=== PATIENT | male | born 1955 | race Caucasian/White ===

== ENCOUNTER 2018-09-09 17:51 | Inpatient (IN) | payer MEDICAID, SELFPAY ==
[2018-09-09] VITALS (21 sets, daily range): BP systolic 119–141; BP diastolic 75–100; PULSE 89–107; RESP 16–33; TEMP 36.6–37; O2SAT 93–99
--- NOTE | 2018-09-09 18:23 | W.ED.GENAD ---
Discharge Plan Disposition Patient Disposition: [facility] INPATIENT Condition: Stable Discharge Details Chief Complaint: Abd Prob Clinical Impression: Abdominal pain, Hypokalemia Reason For Visit: Abdominal pain with leukocytosis Admit Date/Time: 09/09/18 21:28 Admit Provider: Tommy Ulloa III Attending Provider: Tommy Ulloa III Primary Care Provider: None,None ED Provider: Christiano Venegas [facility] Course Hospital Course: Patient was admitted with unknown etiology for his leukocytosis and abdominal pain. CAT scan showed significant streaking of the omentum and mesentery in the peripancreatic and gastric region with concerns for pancreatitis or a gastric ulcer. Patient was started on empiric IV antibiotics with pain meds and IV hydration. Patient was kept n.p.o. and over the course of 4 days in the hospital all his labs returned to normal. Patient was advanced on his diet to a clear liquid where he occasionally would complain of nausea and vomiting but ultimately he was tolerating his diet and was ready for discharge. Patient had H. pylori test and will be continued on antibiotics for H. pylori for a total of 2 weeks. Plan was to have patient reschedule for a upper endoscopy approximately 2 weeks out after the course of antibiotics had finished. Discharge Instructions Instructions: Helicobacter Pylori (GEN) Forms: Nursing Discharge Form Referrals: Tommy Ulloa III, DO [OSTEOPATHIC DOCTOR] - Discharge Data Discharge Date/Time-TO BE ENTERED AT DEPARTURE: 09/09/18 22:23 Medical Decision Making <Ayden Dickey MD - Last Filed: 09/18/18 18:54> 18:27 --63-year-old male here with severe abdominal pain over the past 4 days localized to his mid abdomen and left lower quadrant, tender to palpation in his left lower abdomen and mid abdomen. Concern for acute intra-abdominal surgical process. Consider diverticulitis. Consider bowel perforation. Consider pancreatitis. Plan to CT abdomen pelvis. Maintain NPO. We will give IV fluid. Patient is in significant discomfort. I will treat his pain with a sub-dissociative dose of ketamine. 19:30 --labs reviewed and leukocytosis noted. Potassium 3.1. Will give potassium chloride 20 mEq IV. Lactate mildly elevated. Will give IVF. ALT and total bili elevated. Gallbladder was noted on CT to have calcified stone within the gallbladder but no pericholecystic inflammation. Nonspecific inflammatory-appearing changes within the omentum, mesentery and peripancreatic fat noted on CT. Lipase normal. 20:11 -- Patient reassessed and still having pain. 20:20 -- I spoke with the radiologist who interpreted the CT, Dr. Larson, who notes no obstruction, no ischemic bowel, no perforation, he does mention adjacent potential jejunal inflammation. I spoke with Dr. Stokes with plan for serial abdominal exams, repeat lactate, pain control, NPO and IVF. Requests surgical evaluation. 20:29 -- I spoke with Dr. Ulloa who will see patient. Care signed out to Dr. Venegas with plan to follow-up on surgical evaluation. Imaging Data Radiologic Study: Imaging: CT Scan (abd pelv) Radiologist's impression: FINDINGS: Lower thorax: Bilateral basilar paraseptal emphysema. Atelectasis and/or scar in the right middle lobe and lingula. Tiny gastric hiatus hernia. ABDOMEN: Liver: Unremarkable. No mass. Gallbladder and bile ducts: Calcified stone within the gallbladder. No pericholecystic inflammation. Pancreas: Hazy density within the fat surrounding the pancreas tail. Extensive hazy density throughout the omentum with mild hazy density and scattered tiny lymph nodes within the small bowel mesentery. The findings are nonspecific and may result from acute pancreatitis or changes related to mesenteritis, possibly infectious. Further clinical evaluation is needed. Spleen: Unremarkable. No splenomegaly. Adrenals: Normal. No mass. Kidneys and ureters: Unremarkable. No stones. No hydronephrosis. Stomach and bowel: No bowel obstruction. No diverticulitis or colitis. Appendix: No evidence of appendicitis. PELVIS: Bladder: Mild wall thickening of the urinary bladder, likely secondary to under distention. Cystitis or hypertrophy from chronic urinary bladder a light obstruction is not excluded. Reproductive: Mildly enlarged prostate measuring 4.5 cm x 5.4 cm. ABDOMEN and PELVIS: Intraperitoneal space: Unremarkable. No free air. No significant fluid collection. Bones/joints: No acute fracture. Soft tissues: Small left inguinal hernia containing fat. Vasculature: Mild atherosclerosis of the abdominal aorta. Lymph nodes: No pathologically enlarged lymph nodes. IMPRESSION: 1. Nonspecific inflammatory appearing changes within the omentum, mesentery and peripancreatic fat. Correlate clinically with other signs and symptoms of acute pancreatitis. Other etiologies of mesenteritis including infection should be considered. Further clinical workup is needed. 2. Other nonemergent findings as described above. HPI <Ayden Dickey, MD - Last Filed: 09/18/18 18:54> General Mode of arrival: ambulatory. Date/Time Provider Initiated Documentation: 09/09/18 18:20. Limitations to Documentation: no limitations. Information obtained by: patient. HPI Narrative: 63-year-old male prisoner here with chief when of abdominal pain. Pain is localized to his mid to lower abdomen and left lower quadrant. Pain started 4 days ago and has been persistent. Pain is severe. Patient specifically notes it feels like something blew up inside. It is worse on palpation. He was being given stool softeners and laxatives to treat possible constipation over the past couple days. He had a bowel movement earlier today that did not relieve his symptoms. He also notes that he had trace bright red blood per rectum yesterday. He denies associated fever. No vomiting. Patient denies trauma to his abdomen or rectum. Related Data Home Medications Medication Instructions Recorded Confirmed hydrochlorothiazide 1 tab PO DAILY 02/07/16 09/09/18 Incruse Ellipta 62.5 mcg INHALATION DAILY 09/09/18 09/09/18 Ventolin HFA 1 inh INHALATION QID PRN 09/09/18 09/09/18 acetaminophen 325 mg PO Q6H PRN 09/09/18 09/09/18 aspirin 81 mg PO DAILY 09/09/18 09/09/18 docusate sodium [Colace] 100 mg PO DAILY 09/09/18 09/09/18 ibuprofen 600 mg PO BID 09/09/18 09/09/18 magnesium hydroxide [Milk of 1 dose PO BID 09/09/18 09/09/18 Magnesia] metoprolol tartrate 1 tab PO BID 09/09/18 09/09/18 psyllium husk [Metamucil] 1 packet PO PRN PRN 09/09/18 09/09/18 sennosides [senna] 8.6 mg PO BID PRN 09/09/18 09/09/18 simethicone 80 mg PO ONCE 09/09/18 09/09/18 clarithromycin 500 mg PO BID #28 tab 09/14/18 metronidazole [Flagyl] 500 mg PO BID #28 tab 09/14/18 omeprazole 40 mg PO BID #28 cap 09/14/18 Previous Rx's Medication Instructions Recorded clarithromycin 500 mg PO BID #28 tab 09/14/18 metronidazole [Flagyl] 500 mg PO BID #28 tab 09/14/18 omeprazole 40 mg PO BID #28 cap 09/14/18 Allergies Allergy/AdvReac Type Severity Reaction Status Date / Time Penicillins Allergy Unverified 09/09/18 18:51 General Stated Complaint: Abd Prob JUHI: 3 Review of Systems <Ayden Dickey MD - Last Filed: 09/18/18 18:54> Review of Systems All systems reviewed & are unremarkable except as noted in HPI and below Cardiovascular Denies chest pain Gastrointestinal Reports abdominal pain and Denies vomiting PFSH <Ayden Dickey MD - Last Filed: 09/18/18 18:54> Medical History Left shift without diagnosis of specific infection (Acute) Leukocytosis (leucocytosis) (Acute) Duodenitis (Acute) Acute pancreatitis (Acute) Abdominal pain (Acute) COPD (chronic obstructive pulmonary disease) (Chronic) Social History Smoking/Tobacco Use Status: Former Tobacco Use Exam <Ayden Dickey MD - Last Filed: 09/18/18 18:54> Const General: cooperative and in distress (in pain) Orientation: alert and awake HENMN Head: normocephalic and atraumatic Mouth: mucous membranes dry Eyes Conjunctivae: normal conjunctivae Sclera: normal sclerae EOM: EOM intact bilaterally Neck Neck: trachea midline and supple Resp Auscultation: clear to auscultation bilaterally, no rales, no rhonchi and no wheezes Cardio Jugular venous pressure: no JVD Rate: regular rate and not tachycardic Rhythm: regular rhythm GI Palpation: soft, not firm, guarding, no masses, not rigid and tender in the LLQ, in the LUQ and periumbilically; with no rebound tenderness Skin General skin exam: no rashes or lesions noted Neuro General: alert, awake, oriented x3 and tone normal Extrem General: no edema Psych Appearance: grossly normal Mental Status: mental status grossly normal Speech and Movement: speech and movement normal Course <Ayden Dickey MD - Last Filed: 09/18/18 18:54> Vital Signs Temperature 37.0 C 09/09/18 18:02 Pulse 94 H 09/09/18 18:02 Respiratory Rate 16 09/09/18 18:02 Blood Pressure 119/81 09/09/18 18:02 Pulse Oximetry 95 09/09/18 18:02 Temperature 37.0 C 09/09/18 18:02 Temperature Source Skin 09/09/18 18:02 Pulse 94 H 09/09/18 18:02 Respiratory Rate 16 09/09/18 18:02 Blood Pressure 119/81 09/09/18 18:02 Blood Pressure Position Sitting 09/09/18 18:02 Pulse Oximetry 95 09/09/18 18:02 Sign Out <Ayden Dickey MD - Last Filed: 09/18/18 18:54> Sign Out Data: Sign Out Comment: Follow-up on surgical evaluation. Plan for likely admission. Last updated by Ayden Dickey MD at 09/09/18 20:32 Post-Handoff Eval: Patient signed out to me pending surgical evaluation. He has been seen by medicine, Dr. Stokes. He has now been seen by surgery, Dr. Ulloa. They have decided the patient will be admitted to the surgical service not medical. He has remained stable in the emergency department. Admit to Med/Surg.
[2018-09-09] MEDS: Ketamine 500 MG/10 ML VIAL 10 MG IVP (18:45)
[2018-09-09 18:51] LABS: Lactate-non-spesis 1.8 mmol/L (0.6-1.4)
[2018-09-09] MEDS: Omnipaque 350 MG/ML 100 ML BTL IV (18:55)
[2018-09-09 18:57] LABS: Abs Immature Grans 0.05 k/cumm (0.0-0.09); Absolute Basophil Count 0.02 k/cumm (0.0-0.2); Absolute Monocyte Count 1.46 k/cumm (0.11-0.7); Basophils % 0.1; Eosinophils % 0.1; HCT 44.7 % (40.0-50.0); HGB 15.5 g/dL (13.5-17.5); Immature Grans % 0.3; Lymphocytes % 6.1; Mean Corp. HGB Concentration 34.7 g/dL (32.0-36.0); Mean Corpuscular Hemoglobin 31.8 pg (27.0-33.0); Mean Corpuscular Volume 91.8 fL (80-95); Mean Platelet Volume 11.8 fL (8.0-11.0); Monocytes % 7.6; Neutrophils % 85.8; Platelet Count 160 x1000/uL (130-400); RBC 4.87 m/cumm (4.50-6.00); White Blood Cell Count 19.16 k/cumm (4.4-10.8)
[2018-09-09 18:58] LABS: Absolute Eosinophil Count 0.02 k/cumm (0.0-0.7); Absolute Lymphocyte Count 1.17 k/cumm (1.2-3.4); Absolute Neutrophil Count 16.44 k/cumm (1.2-6.7)
[2018-09-09] MEDS: Lactated Ringers 1,000 ML 1000 ML IV (19:00)
--- NOTE | 2018-09-09 19:05 | DI.CT_ITS ---
SYMPTOM/DIAGNOSIS: ABD PAIN, TENDERNESS LLQ AND MID ABD ABDOMEN AND PELVIC CT: The study was carried out according to the usual protocol with an intravenous administration of 91 cc's of Omnipaque 350. Note is made of paraseptal bibasilar emphysema. There is also note made of regions of atelectasis or scarring involving the right middle lobe and lingula. There is in addition, a tiny gastric hiatus hernia. The liver is unremarkable. A calcified stone is noted in the gallbladder. There is nothing to suggest pericholecystic inflammation. There is no pericholecystic fluid collection. There is some increased density in the peripancreatic fat at the tail of the pancreas. Note is also made of haziness in the omentum. There are scattered, very small lymph nodes within the small bowel mesentery. The findings are to be sure nonspecific and could result from acute pancreatitis or mesenteritis. Infection could not be totally excluded. Correlation of these findings with the patient's clinical status is suggested. The spleen is unremarkable. The adrenals are normal. The kidneys are unremarkable. There are no stones or evidence of hydronephrosis. There is no evidence of bowel obstruction. There is nothing to suggest an acute appendix. Mild wall thickening involving the bladder is most likely on the basis of suboptimal distension. To be sure, cystitis or bladder wall hypertrophy could not be excluded. The reproductive organs are intact with note made of prostatic enlargement measuring up to 4.5 by 5.4 cm. There is no evidence of free air or free fluid in the intraperitoneal space. Note is made of a small fat containing left inguinal hernia. There are mild atherosclerotic changes involving the aorta without evidence of an aneurysm. There is no evidence of lymphadenopathy. SUMMARY: There are nonspecific inflammatory changes in the omental fat and in the peripancreatic fat. The findings are to be correlated with the patient's clinical status regarding the possibility of acute pancreatitis. Other etiologies are noted as mentioned above and include mesenteritis and possible infection. All of these findings to be correlated with the patient's clinical status. Please see the above report for the complete description of the other findings involving this patient.
[2018-09-09 19:15] LABS: Lipase 194 U/L (73-393)
[2018-09-09 19:19] LABS: ALT 147 U/L (12-78); AST 35 U/L (15-37); Albumin 3.9 g/dL (3.4-5.0); Alkaline Phosphatase 128 U/L (46-116); Anion Gap 9.8 mmol/L (3-11); BUN 21 mg/dL (7-18); Bilirubin, Total 1.7 mg/dL (0.2-1.0); CO2 30.2 mmol/L (21.0-32.0); CREATININE 1.12 mg/dL (0.70-1.30); Calcium 9.5 mg/dL (8.5-10.1); Chloride 95 mmol/L (98-107); Glucose 138 mg/dL (70-100); Potassium 3.1 mmol/L (3.5-5.1); Sodium 135 mmol/L (136-145); Total Protein 8.2 g/dL (6.4-8.2)
--- NOTE | 2018-09-09 19:22 | DI.VRAD_ITS ---
Addendum created by Dean Schwartz MD on 09/09/2018 8:52:51 PM EST I personally discussed the findings with Ayden Dickey on 09/09/2018 at 8:20 PM EST by telephone conference call. Initial report created on 09/09/2018 7:21:43 PM EST EXAM: CT Abdomen and Pelvis With Contrast EXAM DATE/TIME: 09/09/2018 6:23 PM CLINICAL HISTORY: 63 years old, male; Signs and symptoms; Nausea and vomiting and other: Abd pain 4 days, tender llq and mid abd; Prior surgery; Surgery date: 6+ months; Surgery type: Hernia repair TECHNIQUE: Axial computed tomography images of the abdomen and pelvis with intravenous contrast. All CT scans at this facility use at least one of these dose optimization techniques: automated exposure control; mA and/or kV adjustment per patient size (includes targeted exams where dose is matched to clinical indication); or iterative reconstruction. Coronal and sagittal reformatted images were created and reviewed. CONTRAST: 91 ml of omnipaque 350 administered intravenously. COMPARISON: No relevant prior studies available. FINDINGS: Lower thorax: Bilateral basilar paraseptal emphysema. Atelectasis and/or scar in the right middle lobe and lingula. Tiny gastric hiatus hernia. ABDOMEN: Liver: Unremarkable. No mass. Gallbladder and bile ducts: Calcified stone within the gallbladder. No pericholecystic inflammation. Pancreas: Hazy density within the fat surrounding the pancreas tail. Extensive hazy density throughout the omentum with mild hazy density and scattered tiny lymph nodes within the small bowel mesentery. The findings are nonspecific and may result from acute pancreatitis or changes related to mesenteritis, possibly infectious. Further clinical evaluation is needed. Spleen: Unremarkable. No splenomegaly. Adrenals: Normal. No mass. Kidneys and ureters: Unremarkable. No stones. No hydronephrosis. Stomach and bowel: No bowel obstruction. No diverticulitis or colitis. Appendix: No evidence of appendicitis. PELVIS: Bladder: Mild wall thickening of the urinary bladder, likely secondary to under distention. Cystitis or hypertrophy from chronic urinary bladder a light obstruction is not excluded. Reproductive: Mildly enlarged prostate measuring 4.5 cm x 5.4 cm. ABDOMEN and PELVIS: Intraperitoneal space: Unremarkable. No free air. No significant fluid collection. Bones/joints: No acute fracture. Soft tissues: Small left inguinal hernia containing fat. Vasculature: Mild atherosclerosis of the abdominal aorta. Lymph nodes: No pathologically enlarged lymph nodes. IMPRESSION: 1. Nonspecific inflammatory appearing changes within the omentum, mesentery and peripancreatic fat. Correlate clinically with other signs and symptoms of acute pancreatitis. Other etiologies of mesenteritis including infection should be considered. Further clinical workup is needed. 2. Other nonemergent findings as described above. Dictated and Authenticated by: Dean Schwartz MD. Ordering:TERESA Hensley MD
--- NOTE | 2018-09-09 20:26 | W.PM.HP.N ---
Date of service: 09/09/18 Time of Service: 20:27 Assessment and Plan (1) Abdominal pain: Current visit: Yes Status: Acute Abdominal pain, etiology unclear though clearly this would seem to localize to the peripancreatic zone based on the CT. I would not want to make a diagnosis of pancreatitis with a normal lipase. Absent a specific diagnosis with this degree of tenderness and leukocytosis I feel a surgical consult would be appropriate. I reviewed this with the emergency room physician and he is making that contact will standby on management plan pending surgical consult. History of Present Illness Chief Complaint: Abdominal pain Narrative: Patient is a 63-year-old male from the local [place] [facility]. He reports 4 days of more or less constant epigastric pain, with occasional radiation to the back he says he has been moving his bowels normally other than having some loose stool the last few days after he was given unspecified bowel regimen at the [place] [facility]. In the emergency room findings of note for market tenderness of the abdomen, white count of 19,[address] showing inflammatory change in the peripancreatic tissues. He was admitted for further evaluation and management Past medical history: COPD, alcoholism question hypertension, report of unspecified chronic pain syndrome Allergies to penicillin Medication aspirin 81 daily Colace hydrochlorothiazide Lopressor Physical exam temp is 37.0 blood pressure 119/81 pulse 94 respirations 16 O2 sat 95%. HEENT is unremarkable neck supple lungs diminished breath sounds but clear. Heart is distant but regular rate and rhythm. Abdomen is somewhat distended, hypoactive bowel sounds with moderate to severe epigastric tenderness without rebound. Rectal exam is heme negative Laboratory: White count is 19.1 hematocrit 44 platelet 160 sodium 135 potassium 3.1 chloride 95 bicarb 30 BUN 21 creatinine 1.1 glucose 138 lactate 1.8, lipase is 194, calcium 9.5 total bili 0.1 [address] of the abdomen shows inflammatory changes within the omentum, mesentery and peripancreatic fat Review of Systems Review of Systems All systems reviewed & are unremarkable except as noted in HPI and below PFSH Medical History COPD (chronic obstructive pulmonary disease) (Chronic) Social History Smoking/Tobacco Use Status: Former Tobacco Use Meds Home Medications Medication Instructions Recorded Confirmed Type hydrochlorothiazide 1 tab PO DAILY 02/07/16 09/09/18 History acetaminophen 325 mg PO Q6H PRN 09/09/18 09/09/18 History albuterol sulfate [Ventolin HFA] 09/09/18 History aspirin 81 mg PO DAILY 09/09/18 09/09/18 History docusate sodium [Colace] 100 mg PO DAILY 09/09/18 09/09/18 History ibuprofen 09/09/18 History magnesium hydroxide [Milk of 09/09/18 History Magnesia] metoprolol tartrate 1 tab PO DAILY 09/09/18 09/09/18 History psyllium husk [Metamucil] 09/09/18 History sennosides [senna] 8.6 mg PO BID PRN 09/09/18 History simethicone 80 mg PO ONCE 09/09/18 History umeclidinium [Incruse Ellipta] 09/09/18 History Allergies Allergy/AdvReac Type Severity Reaction Status Date / Time Penicillins Allergy Unverified 09/09/18 18:51 Exam Narrative Exam Narrative: per HPI Results Labs : 09/09/18 18:23 09/09/18 18:23 Laboratory Results - last 24 hr 09/09/18 09/09/18 09/09/18 18:23 18:23 18:23 WBC RBC Hgb Hct MCV MCH MCHC RDW Plt Count MPV Immature Gran % Neutrophils % Lymphocytes % Monocytes % Eosinophils % Basophils % Absolute Neutrophils Absolute Lymphocytes Absolute Monocytes Absolute Eosinophils Absolute Basophils Sodium 135 L Potassium 3.1 L Chloride 95 L Carbon Dioxide 30.2 Anion Gap 9.8 BUN 21 H Creatinine 1.12 Estimated GFR/1.73 m2 >= 60.00 Glucose 138 H Lactate 1.8 H Calcium 9.5 Total Bilirubin 1.7 H AST 35 ALT 147 H Alkaline Phosphatase 128 H Total Protein 8.2 Albumin 3.9 Lipase Patient ABO/Rh A Positive 09/09/18 09/09/18 18:23 18:23 WBC 19.16 H RBC 4.87 Hgb 15.5 Hct 44.7 MCV 91.8 MCH 31.8 MCHC 34.7 RDW 13.0 Plt Count 160 MPV 11.8 H Immature Gran % 0.3 Neutrophils % 85.8 Lymphocytes % 6.1 Monocytes % 7.6 Eosinophils % 0.1 Basophils % 0.1 Absolute Neutrophils 16.44 H Absolute Lymphocytes 1.17 L Absolute Monocytes 1.46 H Absolute Eosinophils 0.02 Absolute Basophils 0.02 Sodium Potassium Chloride Carbon Dioxide Anion Gap BUN Creatinine Estimated GFR/1.73 m2 Glucose Lactate Calcium Total Bilirubin AST ALT Alkaline Phosphatase Total Protein Albumin Lipase 194 Patient ABO/Rh Last Vital Signs Temp 37.0 C 09/09/18 18:02 Pulse 94 H 09/09/18 18:02 Resp 16 09/09/18 18:02 BP 119/81 09/09/18 18:02 Pulse Ox 95 09/09/18 18:02
[2018-09-09] MEDS: POTASSIUM CHLORIDE 20 MEQ/100 ML BAG 50 MEQ IVPB (20:31)
[2018-09-09] MEDS: Lactated Ringers 1,000 ML 125 ML IV ×2 (20:31→22:43)
--- NOTE | 2018-09-09 21:10 | W.PM.HP.N ---
Date of service: 09/09/18 Time of Service: 21:10 Assessment and Plan (1) Acute pancreatitis: Start date: 09/09/18 Start time: 21:19 Current visit: Yes Status: Acute pt pain mostly in the epigastric region some radiation to the chest and back unsure why he does not have an elevated amylase or lipase but will treat like this is the diagnosis covering some other differentials listed below (2) Duodenitis: Start date: 09/09/18 Start time: 21:19 Current visit: Yes Status: Acute ct look as if he has thickened duodenum there is no signs of perforation or free air around the duodenum The elevated white count with a left shift indicates an infectious process could be explained by pancreatitis but lack of amylase and lipase makes this a possible differential in his current condition. (3) Leukocytosis (leucocytosis): Start date: 09/09/18 Start time: 21:19 Current visit: Yes Status: Acute We will start broad-spectrum antibiotics Cipro and Flagyl for his current condition. Will repeat labs in a.m. (4) Left shift without diagnosis of specific infection: Start date: 09/09/18 Start time: 21:19 Current visit: Yes Status: Acute Start antibiotics (5) Abdominal pain: Start date: 09/09/18 Start time: 21:19 Current visit: Yes Status: Acute Pain meds as needed History of Present Illness Chief Complaint: abdomial pain for 4 days Narrative: pt claims the pain has stayed at this level all along. Hes been receiving ibuprofen for it around the clock. Review of Systems Constitutional Reports as per HPI Cardiovascular Reports as per HPI Respiratory Reports as per HPI Gastrointestinal Reports as per HPI, Reports abdominal pain and Reports nausea PFSH Medical History Left shift without diagnosis of specific infection (Acute) Leukocytosis (leucocytosis) (Acute) Duodenitis (Acute) Acute pancreatitis (Acute) Abdominal pain (Acute) COPD (chronic obstructive pulmonary disease) (Chronic) Social History Smoking/Tobacco Use Status: Former Tobacco Use Meds Home Medications Medication Instructions Recorded Confirmed Type hydrochlorothiazide 1 tab PO DAILY 02/07/16 09/09/18 History acetaminophen 325 mg PO Q6H PRN 09/09/18 09/09/18 History albuterol sulfate [Ventolin HFA] 09/09/18 History aspirin 81 mg PO DAILY 09/09/18 09/09/18 History docusate sodium [Colace] 100 mg PO DAILY 09/09/18 09/09/18 History ibuprofen 09/09/18 History magnesium hydroxide [Milk of 09/09/18 History Magnesia] metoprolol tartrate 1 tab PO DAILY 09/09/18 09/09/18 History psyllium husk [Metamucil] 09/09/18 History sennosides [senna] 8.6 mg PO BID PRN 09/09/18 History simethicone 80 mg PO ONCE 09/09/18 History umeclidinium [Incruse Ellipta] 09/09/18 History Allergies Allergy/AdvReac Type Severity Reaction Status Date / Time Penicillins Allergy Unverified 09/09/18 18:51 Exam Const General: cooperative Nutritional Appearance: average body habitus Orientation: alert, awake and oriented x3 Resp Effort & Inspection: normal respiratory effort Auscultation: clear to auscultation bilaterally Percussion: percussion normal Cardio Jugular venous pressure: no JVD Palpation: normal PMI Rate: tachycardic Rhythm: regular rhythm Heart Sounds: S1 normal and S2 normal GI Inspection: normal to inspection and distended Palpation: firm, guarding and tender in the epigastrum Percussion: tympanic to percussion Auscultation: hypoactive bowel sounds Abdomen image: 1. pain Results Labs : 09/09/18 18:23 09/09/18 18:23 Laboratory Results - last 24 hr 09/09/18 09/09/18 09/09/18 18:23 18:23 18:23 WBC RBC Hgb Hct MCV MCH MCHC RDW Plt Count MPV Immature Gran % Neutrophils % Lymphocytes % Monocytes % Eosinophils % Basophils % Absolute Neutrophils Absolute Lymphocytes Absolute Monocytes Absolute Eosinophils Absolute Basophils Sodium 135 L Potassium 3.1 L Chloride 95 L Carbon Dioxide 30.2 Anion Gap 9.8 BUN 21 H Creatinine 1.12 Estimated GFR/1.73 m2 >= 60.00 Glucose 138 H Lactate 1.8 H Calcium 9.5 Total Bilirubin 1.7 H AST 35 ALT 147 H Alkaline Phosphatase 128 H Total Protein 8.2 Albumin 3.9 Lipase Patient ABO/Rh A Positive Antibody Screen Negative 09/09/18 09/09/18 18:23 18:23 WBC 19.16 H RBC 4.87 Hgb 15.5 Hct 44.7 MCV 91.8 MCH 31.8 MCHC 34.7 RDW 13.0 Plt Count 160 MPV 11.8 H Immature Gran % 0.3 Neutrophils % 85.8 Lymphocytes % 6.1 Monocytes % 7.6 Eosinophils % 0.1 Basophils % 0.1 Absolute Neutrophils 16.44 H Absolute Lymphocytes 1.17 L Absolute Monocytes 1.46 H Absolute Eosinophils 0.02 Absolute Basophils 0.02 Sodium Potassium Chloride Carbon Dioxide Anion Gap BUN Creatinine Estimated GFR/1.73 m2 Glucose Lactate Calcium Total Bilirubin AST ALT Alkaline Phosphatase Total Protein Albumin Lipase 194 Patient ABO/Rh Antibody Screen Last Vital Signs Temp 37.0 C 09/09/18 18:02 Pulse 94 H 09/09/18 18:02 Resp 16 09/09/18 18:02 BP 119/81 09/09/18 18:02 Pulse Ox 95 09/09/18 18:02
[2018-09-09] MEDS: HYDROmorphone 2 MG/ML VIAL 0.5 MG IVP (21:51)
[2018-09-09] MEDS: HYDROmorphone 2 MG/ML VIAL IVP (23:34)
[2018-09-09] MEDS: MetroNIDAZOLE 500 MG/100 ML BAG 100 MG IVPB (23:35)
[2018-09-09] MEDS: Normal Saline Flush 10 ML SYR IVP (23:35)
[2018-09-10] MEDS: CIPROFLOXACIN 400 MG/200 ML BAG 200 MG IVPB ×2 (01:40→14:18)
[2018-09-10] MEDS: HYDROmorphone 2 MG/ML VIAL IVP ×4 (06:11→23:36)
[2018-09-10] MEDS: Sucralfate 1 GM TAB PO ×4 (07:12→23:36)
[2018-09-10 07:16] LABS: Abs Immature Grans 0.04 k/cumm (0.0-0.09); Absolute Basophil Count 0.02 k/cumm (0.0-0.2); Absolute Eosinophil Count 0.03 k/cumm (0.0-0.7); Absolute Lymphocyte Count 0.96 k/cumm (1.2-3.4); Absolute Monocyte Count 1.34 k/cumm (0.11-0.7); Basophils % 0.1; Eosinophils % 0.2; HCT 37.9 % (40.0-50.0); HGB 12.8 g/dL (13.5-17.5); Immature Grans % 0.2; Lymphocytes % 5.8; Mean Corp. HGB Concentration 33.8 g/dL (32.0-36.0); Mean Corpuscular Hemoglobin 31.8 pg (27.0-33.0); Mean Platelet Volume 11.5 fL (8.0-11.0); Monocytes % 8.1; Neutrophils % 85.6; Platelet Count 145 x1000/uL (130-400); RBC 4.03 m/cumm (4.50-6.00); RBC Distribution Width 12.8 % (11.8-14.1); White Blood Cell Count 16.52 k/cumm (4.4-10.8)
[2018-09-10 07:17] LABS: Absolute Neutrophil Count 14.14 k/cumm (1.2-6.7)
[2018-09-10 07:27] LABS: ALT 95 U/L (12-78); AST 23 U/L (15-37); Alkaline Phosphatase 108 U/L (46-116); Amylase 72 U/L (25-115); Anion Gap 8.7 mmol/L (3-11); BUN 15 mg/dL (7-18); Bilirubin, Total 1.7 mg/dL (0.2-1.0); CO2 28.3 mmol/L (21.0-32.0); CREATININE 0.93 mg/dL (0.70-1.30); Calcium 8.2 mg/dL (8.5-10.1); Chloride 100 mmol/L (98-107); Glucose 111 mg/dL (70-100); Lipase 100 U/L (73-393); Potassium 3.1 mmol/L (3.5-5.1); Sodium 137 mmol/L (136-145); Total Protein 6.6 g/dL (6.4-8.2)
[2018-09-10 07:30] VITALS: BP 107/71; PULSE 106; RESP 20; TEMP 37.1; O2SAT 88
[2018-09-10] MEDS: Normal Saline Flush 10 ML SYR IVP ×5 (07:44→23:41)
[2018-09-10] MEDS: Ketorolac 15 MG/ML VIAL IVP ×3 (07:45→19:52)
[2018-09-10] MEDS: Pantoprazole 40 MG VIAL IVP ×2 (07:45→19:51)
[2018-09-10] MEDS: MetroNIDAZOLE 500 MG/100 ML BAG 100 MG IVPB ×3 (07:45→23:37)
[2018-09-10] MEDS: Lactated Ringers 1,000 ML 125 ML IV ×2 (07:49→23:07)
[2018-09-10] MEDS: POTASSIUM CHLORIDE 10 MEQ/100 ML BAG 100 MEQ IVPB ×4 (09:40→12:38)
[2018-09-10 13:05] VITALS: BP 103/69; PULSE 100; RESP 22; TEMP 37.9; O2SAT 94
--- NOTE | 2018-09-10 14:00 | W.PM.PROGNOT ---
Date of Service Date of service: 09/10/18 Time of Service: 14:01 Assessment and Plan (1) Leukocytosis (leucocytosis): Current visit: Yes Status: Acute A\\ leukocytsosis with CT findings which are non-specific. Differential includes mesenteritis, pancreatitis, duodenitis Loose stools- patient on multiple stool softners in longterm. P\\ Continue with IV ABX Continue with IV Protonix and po Carafate Recheck labs in the am Qualifiers: Leukocytosis type: unspecified Qualified Code(s): D72.829 - Elevated white blood cell count, unspecified (2) Hypertension: Current visit: Yes Status: Chronic A\\ Usually on Metoprolol and HCTZ BP low and tachycardic P\\ Give a bolus of fluid Hold BP meds for now Qualifiers: Hypertension type: essential hypertension Qualified Code(s): I10 - Essential (primary) hypertension (3) COPD (chronic obstructive pulmonary disease): Current visit: Yes Status: Chronic A\\ COPD P\\ restart usual inhalors and also do Duonebs Q6h prn Get ISP Qualifiers: COPD type: unspecified COPD Qualified Code(s): J44.9 - Chronic obstructive pulmonary disease, unspecified Subjective Interval history since last seen: Mr. Langston is complaining of intermittent sharp pain in the epigastric, periumbilical area. He is still tachycardic and has been complaining of SOB. He does have a history of COPD. He is hungry and is asking for food. Exam Resp Effort & Inspection: normal respiratory effort Auscultation: clear to auscultation bilaterally Cardio Rate: regular rate Rhythm: regular rhythm Heart Sounds: no gallops, no murmurs and no rubs GI Inspection: normal to inspection Palpation: soft, not firm, no guarding and tender in the epigastrum and periumbilically Auscultation: normal bowel sounds Objective Objective Clinical Data: Abnormal lab results 09/09/18 09/09/18 09/09/18 Range/Units 18:23 18:23 18:23 WBC 19.16 H (4.4-10.8) k/cumm RBC (4.50-6.00) m/cumm Hgb (13.5-17.5) g/dL Hct (40.0-50.0) % MPV 11.8 H (8.0-11.0) fL Absolute Neutrophils 16.44 H (1.2-6.7) k/cumm Absolute Lymphocytes 1.17 L (1.2-3.4) k/cumm Absolute Monocytes 1.46 H (0.11-0.7) k/cumm Sodium 135 L (136-145) mmol/L Potassium 3.1 L (3.5-5.1) mmol/L Chloride 95 L (98-107) mmol/L BUN 21 H (7-18) mg/dL Glucose 138 H (70-100) mg/dL Lactate 1.8 H (0.6-1.4) mmol/L Calcium (8.5-10.1) mg/dL Total Bilirubin 1.7 H (0.2-1.0) mg/dL ALT 147 H (12-78) U/L Alkaline Phosphatase 128 H (46-116) U/L Albumin (3.4-5.0) g/dL 09/10/18 09/10/18 Range/Units 06:58 06:58 WBC 16.52 H (4.4-10.8) k/cumm RBC 4.03 L (4.50-6.00) m/cumm Hgb 12.8 L D (13.5-17.5) g/dL Hct 37.9 L (40.0-50.0) % MPV 11.5 H (8.0-11.0) fL Absolute Neutrophils 14.14 H (1.2-6.7) k/cumm Absolute Lymphocytes 0.96 L (1.2-3.4) k/cumm Absolute Monocytes 1.34 H (0.11-0.7) k/cumm Sodium (136-145) mmol/L Potassium 3.1 L (3.5-5.1) mmol/L Chloride (98-107) mmol/L BUN (7-18) mg/dL Glucose 111 H (70-100) mg/dL Lactate (0.6-1.4) mmol/L Calcium 8.2 L (8.5-10.1) mg/dL Total Bilirubin 1.7 H (0.2-1.0) mg/dL ALT 95 H (12-78) U/L Alkaline Phosphatase (46-116) U/L Albumin 3.0 L (3.4-5.0) g/dL Vital Signs Temperature 100.2 F H 09/10/18 13:05 Temperature Source Tympanic 09/10/18 13:05 Pulse 100 H 09/10/18 13:05 Pulse Rhythm Regular 09/10/18 07:45 Pulse 105 H 09/09/18 22:10 Respiratory Rate 22 09/10/18 13:05 Respiratory Effort Non-Labored 09/10/18 07:45 Respiratory Depth Normal 09/10/18 07:45 Respiratory Pattern Normal 09/10/18 07:45 Blood Pressure 103/69 09/10/18 13:05 Blood Pressure Mean 100 09/09/18 22:01 Blood Pressure Position Sitting 09/09/18 18:02 Pulse Oximetry 94 L 09/10/18 13:05 Oxygen Delivery Method Room Air 09/10/18 13:05 Oxygen Flow Rate 0 09/10/18 13:05 Pain Level 8 09/10/18 13:05 Intake & Output 09/09/18 09/10/18 09/10/18 23:59 11:59 23:59 Intake Total 1375 / 1375 150 2000. Balance 1375 / 1375 1850. 150 Weight 166 lb 3.657 oz Intake: IV 1375 / 1375 185.1950. Oral 50 / 50 Laboratory Results WBC 16.52 k/cumm (4.4-10.8) H 09/10/18 06:58 RBC 4.03 m/cumm (4.50-6.00) L 09/10/18 06:58 Hgb 12.8 g/dL (13.5-17.5) L D 09/10/18 06:58 Hct 37.9 % (40.0-50.0) L 09/10/18 06:58 MCV 94.0 fL (80-95) 09/10/18 06:58 MCH 31.8 pg (27.0-33.0) 09/10/18 06:58 MCHC 33.8 g/dL (32.0-36.0) 09/10/18 06:58 RDW 12.8 % (11.8-14.1) 09/10/18 06:58 Plt Count 145 x1000/uL (130-400) 09/10/18 06:58 MPV 11.5 fL (8.0-11.0) H 09/10/18 06:58 Immature Gran % 0.2 09/10/18 06:58 Neutrophils % 85.6 09/10/18 06:58 Lymphocytes % 5.8 09/10/18 06:58 Monocytes % 8.1 09/10/18 06:58 Eosinophils % 0.2 09/10/18 06:58 Basophils % 0.1 09/10/18 06:58 Absolute Neutrophils 14.14 k/cumm (1.2-6.7) H 09/10/18 06:58 Absolute Lymphocytes 0.96 k/cumm (1.2-3.4) L 09/10/18 06:58 Absolute Monocytes 1.34 k/cumm (0.11-0.7) H 09/10/18 06:58 Absolute Eosinophils 0.03 k/cumm (0.0-0.7) 09/10/18 06:58 Absolute Basophils 0.02 k/cumm (0.0-0.2) 09/10/18 06:58 Sodium 137 mmol/L (136-145) 09/10/18 06:58 Potassium 3.1 mmol/L (3.5-5.1) L 09/10/18 06:58 Chloride 100 mmol/L (98-107) 09/10/18 06:58 Carbon Dioxide 28.3 mmol/L (21.0-32.0) 09/10/18 06:58 Anion Gap 8.7 mmol/L (3-11) 09/10/18 06:58 BUN 15 mg/dL (7-18) D 09/10/18 06:58 Creatinine 0.93 mg/dL (0.70-1.30) 09/10/18 06:58 Estimated GFR/1.73 m2 >= 60.00 (mL/min/1.73m2) 09/10/18 06:58 Glucose 111 mg/dL (70-100) H 09/10/18 06:58 Lactate 1.8 mmol/L (0.6-1.4) H 09/09/18 18:23 Calcium 8.2 mg/dL (8.5-10.1) L 09/10/18 06:58 Total Bilirubin 1.7 mg/dL (0.2-1.0) H 09/10/18 06:58 AST 23 U/L (15-37) 09/10/18 06:58 ALT 95 U/L (12-78) H 09/10/18 06:58 Alkaline Phosphatase 108 U/L (46-116) 09/10/18 06:58 Total Protein 6.6 g/dL (6.4-8.2) 09/10/18 06:58 Albumin 3.0 g/dL (3.4-5.0) L 09/10/18 06:58 Amylase 72 U/L (25-115) 09/10/18 06:58 Lipase 100 U/L (73-393) 09/10/18 06:58 Patient ABO/Rh A Positive 09/09/18 18:23 Antibody Screen Negative 09/09/18 18:23
[2018-09-10] MEDS: Albuterol/Ipratropium 3 ML UPD VIAL UPD (14:16)
[2018-09-10 14:18] VITALS: TEMP 37.9
[2018-09-10] MEDS: Normal Saline 500 ML 1000 ML IV (14:50)
--- NOTE | 2018-09-10 15:22 | PHARADMIT ---
Addendum entered by Stefan Mena III 09/12/18 11:40: Pharmacy Note Subjective Surgeon Notes that patient has much improved on empiric ABX & hydration. MD suspicious of duodenal ulcer, well need upper endoscopy. ?Outpatient Objective VS-OK Pain:810 K+3.6 H&H-10.9/33.1 Assessment Flagyl, Cipro continues. Plan Advance diet slowly. Original Note: Addendum entered by Stefan Mena III 09/11/18 12:35: Pharmacy Note Subjective CT reveals non-specific infammation of mesentary, No cholecystitis but stone found. Has hx of COPD, Duonebs ordered Objective vs-ok k+3.4 SCr-1.05 PLts-137 LFT's have normalized. No BM yet Assessment IV Cipro & Flagyl continue. IV Protonix & PO Carafate started. BP low, Home meds held (Metorolol,HCTZ) Plan Will return to [facility], has guard present. Original Note: Admission Pharmacy Clinical Review PANCREATITIS Code Status Full Code Current Weight 75.4 kg Renally Cleared and Narrow Therapeutic Index Meds CRCL ~68ML/MIN QTc Value / Action Taken NA BP Control, Fever 103/69 TEMP 37.9 Electrolytes reviewed K 3.1, DVT Prophylaxis NO Opiate Usage / Scheduled Bowel Regimen Ordered PRN/NO Plt/SCr for Heparin / Enoxaparin 145/0.93 INR for Warfarin NA H/H stable, WBC/Bands 12.8/37.9 WBC 16.52 Antibiotic appropriateness METRONIDAZOLE, CIPRO iv Cultures and Sensitivities BC PENDING Surgical ABX d/c within 24 hr NA DM control / Insulin Dosing NA Heart Failure (Check EF%) (BRYAN's, B-Block, Diuretics) NO IV to PO Switch NO PO MEDS EXCEPT SUCRALFATE Home Meds Reviewed hydrochlorothiazide 1 tab PO DAILY 02/07/16 [History Confirmed 09/09/18] aspirin 81 mg PO DAILY 09/09/18 [History Confirmed 09/09/18] docusate sodium [Colace] 100 mg PO DAILY 09/09/18 ibuprofen 600 mg PO BID 09/09/18 [History Confirmed 09/09/18] magnesium hydroxide [Milk of Magnesia] 1 dose PO BID 09/09/18 metoprolol tartrate 1 tab PO BID 09/09/18 [History Confirmed 09/09/18] psyllium husk [Metamucil] 1 packet PO PRN PRN 09/09/18 sennosides [senna] 8.6 mg PO BID PRN 09/09/18 [History Confirmed 09/09/18] Home Meds Not Ordered Comments
--- NOTE | 2018-09-10 15:51 | CHAPLAIN ---
Kai was in bed, supervised by corrections officers when I visited. He was mostly concerned about his pain level and said his nurse was aware of his pain.
[2018-09-10 16:21] VITALS: BP 96/59; PULSE 101; RESP 22; TEMP 37.4; O2SAT 89
--- NOTE | 2018-09-10 17:42 | PDOC.CMIN ---
- If Service Date Differs Date of service: 09/10/18 Time of Service: 17:42 Care Management Initial Assess REASON FOR HOSPITALIZATION:: Pancreatitis PAST MEDICAL HISTORY/PAST SURGICAL HISTORY:: COPD, hypertension, duodenitis. PREVIOUS FUNCTIONAL STATUS/SOCIAL/FAMILY SUPPORTS:: Kai resides at [facility] and has for the past 4 years. CURRENT FUNCTIONAL STATUS:: Kai is sitting up in bed he is engaged with CM during assessment. Guards are present at all times in the room, and Kai remains shackled. Kai reports that he would like to eat, it is been 4 days due to pain and nausea. He asked several times during the conversation when he will be able to eat. CM reviewed the plan and n.p.o. status with the patient. ADVANCE DIRECTIVES:: None on file Has patient been provided with information about the portal?: Yes Did the patient sign up for the portal?: No CODE STATUS:: Full Code INSURANCE COVERAGE / FINANCIAL ISSUES:: [facility], Medicaid CURRENT HOME/COMMUNITY SERVICES/EQUIPMENT:: Currently resides at the [facility] PRIMARY CARE PHYSICIAN:: [facility] POTENTIAL DISCHARGE NEEDS:: Follow-up with provider at facility as recommended. PATIENT/FAMILY EDUCATION NEEDS:: Education related to limitations, medications, and follow-up plan of care. ANTICIPATED BARRIERS TO DISCHARGE:: None identified at this time. TRANSPORTATION:: Via correctional officers at time of discharge. PLAN:: Kai is currently being treated for pancreatitis, including pain management, and IV antibiotics..Kai will return to [facility] at time of discharge no additional services at that time. CM to provide update to nursing staff at [facility]. CM did obtain a current medication list from [facility] today and provided to see CCRN. CM to continue to provide support ongoing discharge planning.
--- NOTE | 2018-09-10 17:51 | INITIAL_ITS ---
- If Service Date Differs Date of service: 09/10/18 Time of Service: 17:42 Care Management Initial Assess REASON FOR HOSPITALIZATION:: Pancreatitis PAST MEDICAL HISTORY/PAST SURGICAL HISTORY:: COPD, hypertension, duodenitis. PREVIOUS FUNCTIONAL STATUS/SOCIAL/FAMILY SUPPORTS:: Kai resides at [facility] and has for the past 4 years. CURRENT FUNCTIONAL STATUS:: Kai is sitting up in bed he is engaged with CM during assessment. Guards are present at all times in the room, and Kai remains shackled. Kai reports that he would like to eat, it is been 4 days due to pain and nausea. He asked several times during the conversation when he will be able to eat. CM reviewed the plan and n.p.o. status with the patient. ADVANCE DIRECTIVES:: None on file Has patient been provided with information about the portal?: Yes Did the patient sign up for the portal?: No CODE STATUS:: Full Code INSURANCE COVERAGE / FINANCIAL ISSUES:: [facility], Medicaid CURRENT HOME/COMMUNITY SERVICES/EQUIPMENT:: Currently resides at the [facility] PRIMARY CARE PHYSICIAN:: [facility] POTENTIAL DISCHARGE NEEDS:: Follow-up with provider at facility as recommended. PATIENT/FAMILY EDUCATION NEEDS:: Education related to limitations, medications, and follow-up plan of care. ANTICIPATED BARRIERS TO DISCHARGE:: None identified at this time. TRANSPORTATION:: Via correctional officers at time of discharge. PLAN:: Kai is currently being treated for pancreatitis, including pain management, and IV antibiotics..Kai will return to [facility] at time of discharge no additional services at that time. CM to provide update to nursing staff at [facility]. CM did obtain a current medication list from [facility] today and provided to see CCRN. CM to continue to provide support ongoing discharge planning.
--- NOTE | 2018-09-11 00:39 | NUR.NOTE ---
Nursing Note: Pt reported to [facility] LIBRARY CLERK that his urine has blood streaks. Instructed to void in urinal next time and call staff for further assessment. O2 administred at 2L, via NC latest O2 Sat 90%. Stool specimen sent to lab. Medicated for pain and with good relief.
[2018-09-11] MEDS: Ketorolac 15 MG/ML VIAL IVP ×4 (01:32→20:15)
[2018-09-11] MEDS: Normal Saline Flush 10 ML SYR IVP ×4 (01:33→20:14)
[2018-09-11] MEDS: CIPROFLOXACIN 400 MG/200 ML BAG 200 MG IVPB ×2 (01:33→13:04)
[2018-09-11] MEDS: Sucralfate 1 GM TAB PO ×4 (05:34→23:47)
[2018-09-11 07:15] LABS: Abs Immature Grans 0.02 k/cumm (0.0-0.09); Absolute Basophil Count 0.02 k/cumm (0.0-0.2); Absolute Eosinophil Count 0.23 k/cumm (0.0-0.7); Absolute Lymphocyte Count 0.71 k/cumm (1.2-3.4); Basophils % 0.2; HCT 33.9 % (40.0-50.0); HGB 11.1 g/dL (13.5-17.5); Immature Grans % 0.2; Lymphocytes % 6.1; Mean Corp. HGB Concentration 32.7 g/dL (32.0-36.0); Mean Corpuscular Hemoglobin 31.4 pg (27.0-33.0); Monocytes % 9.4; Neutrophils % 82.1; Platelet Count 137 x1000/uL (130-400); RBC 3.53 m/cumm (4.50-6.00); RBC Distribution Width 12.9 % (11.8-14.1); White Blood Cell Count 11.68 k/cumm (4.4-10.8)
[2018-09-11 07:18] LABS: Absolute Neutrophil Count 9.59 k/cumm (1.2-6.7)
[2018-09-11 07:25] VITALS: BP 109/69; PULSE 102; RESP 20; TEMP 38; O2SAT 88
[2018-09-11 07:31] LABS: ALT 63 U/L (12-78); AST 17 U/L (15-37); Albumin 2.6 g/dL (3.4-5.0); Alkaline Phosphatase 101 U/L (46-116); Anion Gap 9.8 mmol/L (3-11); BUN 21 mg/dL (7-18); Bilirubin, Total 1.3 mg/dL (0.2-1.0); CO2 26.2 mmol/L (21.0-32.0); CREATININE 1.05 mg/dL (0.70-1.30); Chloride 101 mmol/L (98-107); Glucose 95 mg/dL (70-100); Potassium 3.4 mmol/L (3.5-5.1); Sodium 137 mmol/L (136-145)
[2018-09-11] MEDS: Umeclidinium 7 CAP INHALER 1 CAP IH (07:39)
[2018-09-11] MEDS: Albuterol/Ipratropium 3 ML UPD VIAL UPD (07:44)
[2018-09-11] MEDS: MetroNIDAZOLE 500 MG/100 ML BAG 100 MG IVPB ×3 (08:47→23:46)
[2018-09-11] MEDS: Pantoprazole 40 MG VIAL IVP ×2 (08:47→20:14)
[2018-09-11] MEDS: Lactated Ringers 1,000 ML 125 ML IV ×2 (08:48→18:28)
--- NOTE | 2018-09-11 10:50 | PDOC.CMPRO ---
- If Service Date Differs Date of service: 09/11/18 Time of Service: 10:50 Care Management Progress Note S/O: Kai is lying in bed when this typewriter assembler visits this morning, there is a guard in the room with him. Kai is pleasant and open to discussion, he continues to be NPO this morning and has an oxygen requirement. A: 63 yo male admitted 09/09/18 for Pancreatitis P: Kai will return to [facility] at time of discharge no additional services at that time. [facility] will transport at time of DC.
[2018-09-11] MEDS: HYDROmorphone 2 MG/ML VIAL IVP (11:33)
--- NOTE | 2018-09-11 11:43 | CMPROGNOTE_ITS ---
- If Service Date Differs Date of service: 09/11/18 Time of Service: 10:50 Care Management Progress Note S/O: Kai is lying in bed when this sql report writer visits this morning, there is a guard in the room with him. Kai is pleasant and open to discussion, he continues to be NPO this morning and has an oxygen requirement. A: 63 yo male admitted 09/09/18 for Pancreatitis P: Kai will return to [facility] at time of discharge no additional services at that time. The Correctional facility will transport at time of DC.
--- NOTE | 2018-09-11 16:18 | W.PM.PROGNOT ---
Date of Service Date of service: 09/11/18 Time of Service: 16:18 Assessment and Plan (1) Abdominal pain: Start date: 09/11/18 Start time: 16:20 Current visit: Yes Status: Acute pt condition improving on antibiotics concern for gastric or duodenal ulcer will need scope in the future will decrease ivf poss po in am and restart home meds tach improved and bp waiting on UA pt does have some element of malnutrition alb 2.6 Subjective Patient reports: no new complaints, feels better and pain is less Exam Const General: cooperative Orientation: alert, awake and oriented x3 Limitations: altered mental status GI Inspection: normal to inspection Palpation: soft and tender (inproved) Percussion: normal to percussion Auscultation: normal bowel sounds Objective Objective Clinical Data: Abnormal lab results 09/11/18 09/11/18 Range/Units 06:20 06:20 WBC 11.68 H (4.4-10.8) k/cumm RBC 3.53 L (4.50-6.00) m/cumm Hgb 11.1 L (13.5-17.5) g/dL Hct 33.9 L (40.0-50.0) % MCV 96.0 H (80-95) fL MPV 12.0 H (8.0-11.0) fL Absolute Neutrophils 9.59 H (1.2-6.7) k/cumm Absolute Lymphocytes 0.71 L (1.2-3.4) k/cumm Absolute Monocytes 1.10 H (0.11-0.7) k/cumm Potassium 3.4 L (3.5-5.1) mmol/L BUN 21 H D (7-18) mg/dL Calcium 8.0 L (8.5-10.1) mg/dL Total Bilirubin 1.3 H (0.2-1.0) mg/dL Total Protein 6.0 L (6.4-8.2) g/dL Albumin 2.6 L (3.4-5.0) g/dL Vital Signs Temperature 38.0 C H 09/11/18 07:25 Temperature Source Tympanic 09/11/18 07:25 Pulse 102 H 09/11/18 07:25 Pulse Rhythm Regular 09/11/18 12:10 Pulse 105 H 09/09/18 22:10 Respiratory Rate 20 09/11/18 07:25 Respiratory Effort Non-Labored 09/11/18 12:10 Respiratory Depth Normal 09/11/18 12:10 Respiratory Pattern Normal 09/11/18 12:10 Blood Pressure 109/69 09/11/18 07:25 Blood Pressure Mean 100 09/09/18 22:01 Blood Pressure Position Sitting 09/09/18 18:02 Pulse Oximetry 88 L 09/11/18 07:25 Oxygen Delivery Method Room Air 09/11/18 07:25 Oxygen Flow Rate 0 09/11/18 07:25 Pain Level 9 09/11/18 11:33 Intake & Output 09/10/18 09/11/18 09/11/18 23:59 11:59 23:59 Intake Total 1858.75 / 3710.00 1100 / 1610 510 / 1610 Output Total 200 / 200 Balance 1858.75 / 3710.00 900 / 1410 510 / 1410 Intake: IV 1808.75 / 3660.00 1100 / 1610 510 / 1610 Oral 50 / 50 Output: Urine 200 / 200 Other: Urine Color Dark Red Voiding Methods Toilet Urinal Laboratory Results WBC 11.68 k/cumm (4.4-10.8) H 09/11/18 06:20 RBC 3.53 m/cumm (4.50-6.00) L 09/11/18 06:20 Hgb 11.1 g/dL (13.5-17.5) L 09/11/18 06:20 Hct 33.9 % (40.0-50.0) L 09/11/18 06:20 MCV 96.0 fL (80-95) H 09/11/18 06:20 MCH 31.4 pg (27.0-33.0) 09/11/18 06:20 MCHC 32.7 g/dL (32.0-36.0) 09/11/18 06:20 RDW 12.9 % (11.8-14.1) 09/11/18 06:20 Plt Count 137 x1000/uL (130-400) 09/11/18 06:20 MPV 12.0 fL (8.0-11.0) H 09/11/18 06:20 Immature Gran % 0.2 09/11/18 06:20 Neutrophils % 82.1 09/11/18 06:20 Lymphocytes % 6.1 09/11/18 06:20 Monocytes % 9.4 09/11/18 06:20 Eosinophils % 2.0 09/11/18 06:20 Basophils % 0.2 09/11/18 06:20 Absolute Neutrophils 9.59 k/cumm (1.2-6.7) H 09/11/18 06:20 Absolute Lymphocytes 0.71 k/cumm (1.2-3.4) L 09/11/18 06:20 Absolute Monocytes 1.10 k/cumm (0.11-0.7) H 09/11/18 06:20 Absolute Eosinophils 0.23 k/cumm (0.0-0.7) 09/11/18 06:20 Absolute Basophils 0.02 k/cumm (0.0-0.2) 09/11/18 06:20 Sodium 137 mmol/L (136-145) 09/11/18 06:20 Potassium 3.4 mmol/L (3.5-5.1) L 09/11/18 06:20 Chloride 101 mmol/L (98-107) 09/11/18 06:20 Carbon Dioxide 26.2 mmol/L (21.0-32.0) 09/11/18 06:20 Anion Gap 9.8 mmol/L (3-11) 09/11/18 06:20 BUN 21 mg/dL (7-18) H D 09/11/18 06:20 Creatinine 1.05 mg/dL (0.70-1.30) 09/11/18 06:20 Estimated GFR/1.73 m2 >= 60.00 (mL/min/1.73m2) 09/11/18 06:20 Glucose 95 mg/dL (70-100) 09/11/18 06:20 Lactate 1.8 mmol/L (0.6-1.4) H 09/09/18 18:23 Calcium 8.0 mg/dL (8.5-10.1) L 09/11/18 06:20 Total Bilirubin 1.3 mg/dL (0.2-1.0) H 09/11/18 06:20 AST 17 U/L (15-37) 09/11/18 06:20 ALT 63 U/L (12-78) 09/11/18 06:20 Alkaline Phosphatase 101 U/L (46-116) 09/11/18 06:20 Total Protein 6.0 g/dL (6.4-8.2) L 09/11/18 06:20 Albumin 2.6 g/dL (3.4-5.0) L 09/11/18 06:20 Amylase 72 U/L (25-115) 09/10/18 06:58 Lipase 100 U/L (73-393) 09/10/18 06:58 C.difficile Tox Ab Neut Cancelled 09/10/18 13:58 Patient ABO/Rh A Positive 09/09/18 18:23 Antibody Screen Negative 09/09/18 18:23
[2018-09-11 16:59] LABS: Bilirubin Moderate (Negative); Blood Negative (Negative); Clarity Sl Cloudy; Glucose Negative (Negative); Ketones 40 mg/dL (Negative); Leukocyte Esterase Negative (Negative); Nitrite Positive (Negative); Specific Gravity >= 1.030 (1.005-1.025); Urobilinogen 0.2 EU/dL (Up TO 0.2)
[2018-09-11 18:28] LABS: Epithelial Cells Few HPF (Negative); RBC Negative (0-2)
[2018-09-11 18:29] LABS: Bacteria Moderate HPF (Negative); Crystals Few Amorphous HPF (Negative); Mucus Moderate (Negative)
[2018-09-11 18:30] LABS: C & S Indicated? Yes; Casts 0-2 Coarse Granular LPF (Negative)
[2018-09-11 18:41] VITALS: BP 120/72; PULSE 88; RESP 20; TEMP 37.1; O2SAT 96
[2018-09-11 19:27] LABS: Result Negative; Specimen Description Feces
[2018-09-11 21:25] VITALS: O2SAT 91
[2018-09-11 21:27] VITALS: O2SAT 95
[2018-09-11] MEDS: ACETAMINOPHEN 1,000 MG/100 ML BTL 400 MG IVPB (21:56)
[2018-09-11 23:20] VITALS: BP 114/73; PULSE 89; RESP 18; TEMP 36.8; O2SAT 94
[2018-09-12] MEDS: Ketorolac 15 MG/ML VIAL IVP ×4 (02:02→20:22)
[2018-09-12] MEDS: CIPROFLOXACIN 400 MG/200 ML BAG 200 MG IVPB ×2 (02:02→13:31)
[2018-09-12] MEDS: Lactated Ringers 1,000 ML 125 ML IV (04:24)
[2018-09-12] MEDS: Sucralfate 1 GM TAB PO ×3 (06:25→18:54)
--- NOTE | 2018-09-12 06:28 | W.PM.PROGNOT ---
Date of Service Date of service: 09/12/18 Time of Service: 06:28 Assessment and Plan (1) Abdominal pain: Start date: 09/12/18 Start time: 06:29 Current visit: Yes Status: Acute Patient has improved with empiric antibiotics and n.p.o. with IV hydration With his clinical exam CT and labs suspicion for duodenal ulcer as cause of his current condition is suspected. Patient will need upper endoscopy at some point in the near future but will do a trial of p.o. to see if he tolerates this the patient may have a large ulcer that had a small perforation causing the omental and mesenteric inflammatory changes as well as a white count. Due to this possibility we will proceed slowly with advancing his diet and at 2 weeks out perform an upper endoscopy to confirm this. Patient will continue on the PPIs and will restart home meds. Subjective Patient reports: no new complaints, feels better and pain is less Exam Const General: cooperative Nutritional Appearance: average body habitus Orientation: alert, awake and oriented x3 Objective Objective Clinical Data: Abnormal lab results 09/11/18 09/11/18 09/11/18 Range/Units 06:20 06:20 08:59 WBC 11.68 H (4.4-10.8) k/cumm RBC 3.53 L (4.50-6.00) m/cumm Hgb 11.1 L (13.5-17.5) g/dL Hct 33.9 L (40.0-50.0) % MCV 96.0 H (80-95) fL MPV 12.0 H (8.0-11.0) fL Absolute Neutrophils 9.59 H (1.2-6.7) k/cumm Absolute Lymphocytes 0.71 L (1.2-3.4) k/cumm Absolute Monocytes 1.10 H (0.11-0.7) k/cumm Potassium 3.4 L (3.5-5.1) mmol/L BUN 21 H D (7-18) mg/dL Calcium 8.0 L (8.5-10.1) mg/dL Total Bilirubin 1.3 H (0.2-1.0) mg/dL Total Protein 6.0 L (6.4-8.2) g/dL Albumin 2.6 L (3.4-5.0) g/dL Ur Specific [place] >= 1.030 H (1.005-1.025) Urine Protein 100 H (Negative) mg/dL Urine Ketones 40 H (Negative) mg/dL Urine Nitrite Positive H (Negative) Urine Bilirubin Moderate H (Negative) Vital Signs Temperature 36.8 C 09/11/18 23:20 Temperature Source Tympanic 09/11/18 23:20 Pulse 89 09/11/18 23:20 Pulse Rhythm Regular 09/12/18 02:37 Pulse 105 H 09/09/18 22:10 Respiratory Rate 18 09/11/18 23:20 Respiratory Effort Non-Labored 09/12/18 02:37 Respiratory Depth Normal 09/12/18 02:37 Respiratory Pattern Normal 09/12/18 02:37 Blood Pressure 114/73 09/11/18 23:20 Blood Pressure Mean 100 09/09/18 22:01 Blood Pressure Position Sitting 09/09/18 18:02 Pulse Oximetry 94 L 09/11/18 23:20 Oxygen Delivery Method Nasal Cannula 09/11/18 23:20 Oxygen Flow Rate 2 09/11/18 23:20 Pain Level 9 09/11/18 21:56 Intake & Output 09/11/18 09/11/18 09/12/18 11:59 23:59 11:59 Intake Total 1100 / 3363.334 2263.334 / 3363.334 866.666 / 866.666 Output Total 200 / 400 200 / 400 Balance 900 / 2963.334 2063.334 / 2963.334 866.666 / 866.666 Intake: IV 1100 / 3243.334 2143.334 / 3243.334 866.666 / 866.666 Oral 120 / 120 Output: Urine 200 / 400 200 / 400 Other: Urine Color Dark Red Dark Marah Comment Urine not seen at this time. Patient flushed toilet Stool Size Small Stool Characteristics Soft Brown Voiding Methods Urinal Urinal Toilet Laboratory Results WBC 11.68 k/cumm (4.4-10.8) H 09/11/18 06:20 RBC 3.53 m/cumm (4.50-6.00) L 09/11/18 06:20 Hgb 11.1 g/dL (13.5-17.5) L 09/11/18 06:20 Hct 33.9 % (40.0-50.0) L 09/11/18 06:20 MCV 96.0 fL (80-95) H 09/11/18 06:20 MCH 31.4 pg (27.0-33.0) 09/11/18 06:20 MCHC 32.7 g/dL (32.0-36.0) 09/11/18 06:20 RDW 12.9 % (11.8-14.1) 09/11/18 06:20 Plt Count 137 x1000/uL (130-400) 09/11/18 06:20 MPV 12.0 fL (8.0-11.0) H 09/11/18 06:20 Immature Gran % 0.2 09/11/18 06:20 Neutrophils % 82.1 09/11/18 06:20 Lymphocytes % 6.1 09/11/18 06:20 Monocytes % 9.4 09/11/18 06:20 Eosinophils % 2.0 09/11/18 06:20 Basophils % 0.2 09/11/18 06:20 Absolute Neutrophils 9.59 k/cumm (1.2-6.7) H 09/11/18 06:20 Absolute Lymphocytes 0.71 k/cumm (1.2-3.4) L 09/11/18 06:20 Absolute Monocytes 1.10 k/cumm (0.11-0.7) H 09/11/18 06:20 Absolute Eosinophils 0.23 k/cumm (0.0-0.7) 09/11/18 06:20 Absolute Basophils 0.02 k/cumm (0.0-0.2) 09/11/18 06:20 Sodium 137 mmol/L (136-145) 09/11/18 06:20 Potassium 3.4 mmol/L (3.5-5.1) L 09/11/18 06:20 Chloride 101 mmol/L (98-107) 09/11/18 06:20 Carbon Dioxide 26.2 mmol/L (21.0-32.0) 09/11/18 06:20 Anion Gap 9.8 mmol/L (3-11) 09/11/18 06:20 BUN 21 mg/dL (7-18) H D 09/11/18 06:20 Creatinine 1.05 mg/dL (0.70-1.30) 09/11/18 06:20 Estimated GFR/1.73 m2 >= 60.00 (mL/min/1.73m2) 09/11/18 06:20 Glucose 95 mg/dL (70-100) 09/11/18 06:20 Lactate 1.8 mmol/L (0.6-1.4) H 09/09/18 18:23 Calcium 8.0 mg/dL (8.5-10.1) L 09/11/18 06:20 Total Bilirubin 1.3 mg/dL (0.2-1.0) H 09/11/18 06:20 AST 17 U/L (15-37) 09/11/18 06:20 ALT 63 U/L (12-78) 09/11/18 06:20 Alkaline Phosphatase 101 U/L (46-116) 09/11/18 06:20 Total Protein 6.0 g/dL (6.4-8.2) L 09/11/18 06:20 Albumin 2.6 g/dL (3.4-5.0) L 09/11/18 06:20 Amylase 72 U/L (25-115) 09/10/18 06:58 Lipase 100 U/L (73-393) 09/10/18 06:58 Urine Color Brown (Yellow) 09/11/18 08:59 Urine Clarity Sl cloudy 09/11/18 08:59 Urine pH 6.0 (5-8) 09/11/18 08:59 Ur Specific [place] >= 1.030 (1.005-1.025) H 09/11/18 08:59 Urine Protein 100 mg/dL (Negative) H 09/11/18 08:59 Urine Ketones 40 mg/dL (Negative) H 09/11/18 08:59 Urine Blood Negative (Negative) 09/11/18 08:59 Urine Nitrite Positive (Negative) H 09/11/18 08:59 Urine Bilirubin Moderate (Negative) H 09/11/18 08:59 Urine Urobilinogen 0.2 EU/dL (Up TO 0.2) 09/11/18 08:59 Ur Leukocyte Esterase Negative (Negative) 09/11/18 08:59 Urine RBC Negative (0-2) 09/11/18 08:59 Urine WBC 5-10 HPF (0-5) 09/11/18 08:59 Ur Epithelial Cells Few HPF (Negative) 09/11/18 08:59 Urine Crystals Few amorphous HPF (Negative) 09/11/18 08:59 Urine Bacteria Moderate HPF (Negative) 09/11/18 08:59 Urine Casts 0-2 coarse granular LPF (Negative) 09/11/18 08:59 Urine Mucus Moderate (Negative) 09/11/18 08:59 Urine Other (Negative) 09/11/18 08:59 Ur Culture Indicated? Yes 09/11/18 08:59 Urine Glucose Negative mg/dL (Negative) 09/11/18 08:59 C.difficile Tox Ab Neut Cancelled 09/10/18 13:58 Patient ABO/Rh A Positive 09/09/18 18:23 Antibody Screen Negative 09/09/18 18:23
[2018-09-12] MEDS: HYDROmorphone 2 MG/ML VIAL IVP (06:39)
[2018-09-12 07:29] LABS: Abs Immature Grans 0.01 k/cumm (0.0-0.09); Absolute Basophil Count 0.01 k/cumm (0.0-0.2); Absolute Lymphocyte Count 0.75 k/cumm (1.2-3.4); Absolute Monocyte Count 0.73 k/cumm (0.11-0.7); Absolute Neutrophil Count 7.38 k/cumm (1.2-6.7); Basophils % 0.1; Eosinophils % 3.3; HCT 33.1 % (40.0-50.0); HGB 10.9 g/dL (13.5-17.5); Immature Grans % 0.1; Lymphocytes % 8.2; Mean Corp. HGB Concentration 32.9 g/dL (32.0-36.0); Mean Corpuscular Hemoglobin 31.4 pg (27.0-33.0); Mean Corpuscular Volume 95.4 fL (80-95); Mean Platelet Volume 11.8 fL (8.0-11.0); Neutrophils % 80.3; Platelet Count 161 x1000/uL (130-400); RBC 3.47 m/cumm (4.50-6.00); RBC Distribution Width 12.4 % (11.8-14.1); White Blood Cell Count 9.18 k/cumm (4.4-10.8)
[2018-09-12 07:43] LABS: ALT 46 U/L (12-78); AST 15 U/L (15-37); Albumin 2.4 g/dL (3.4-5.0); Alkaline Phosphatase 103 U/L (46-116); Anion Gap 9.3 mmol/L (3-11); BUN 17 mg/dL (7-18); Bilirubin, Total 0.8 mg/dL (0.2-1.0); CO2 25.7 mmol/L (21.0-32.0); CREATININE 1.05 mg/dL (0.70-1.30); Chloride 106 mmol/L (98-107); Glucose 94 mg/dL (70-100); Potassium 3.6 mmol/L (3.5-5.1); Sodium 141 mmol/L (136-145); Total Protein 5.8 g/dL (6.4-8.2)
[2018-09-12] MEDS: Pantoprazole 40 MG VIAL IVP ×2 (07:51→20:21)
[2018-09-12] MEDS: Normal Saline Flush 10 ML SYR IVP ×3 (07:52→20:21)
[2018-09-12] MEDS: MetroNIDAZOLE 500 MG/100 ML BAG 100 MG IVPB ×2 (07:52→15:59)
[2018-09-12 08:06] VITALS: BP 124/80; PULSE 81; RESP 18; TEMP 36.8; O2SAT 92
[2018-09-12] MEDS: Umeclidinium 7 CAP INHALER 1 CAP IH (10:06)
[2018-09-12 10:12] VITALS: O2SAT 87
[2018-09-12] MEDS: Albuterol 2.5 MG/3 ML INH SOLN VIAL UPD (10:12)
[2018-09-12 10:16] VITALS: PULSE 84; RESP 1; RESP 20; O2SAT 94
[2018-09-12 10:17] VITALS: O2SAT 94
--- NOTE | 2018-09-12 14:49 | PDOC.CMPRO ---
- If Service Date Differs Date of service: 09/12/18 Time of Service: 14:49 Care Management Progress Note S/O: Kai is lying in bed when this sql report writer visits this morning, there is a guard in the room with him. Kai has requested hard candy which CM obtained and gave to MARCIO Jefferson, to provide to Kai. C Diff is still pending as of this morning, and Kai continues to have an oxygen requirement. A: 63 yo male admitted 09/09/18 for Pancreatitis P: [facility] discharge no additional services at that time. [facility] at time of DC.
[2018-09-12 16:05] VITALS: BP 114/74; PULSE 84; RESP 18; TEMP 37.3; O2SAT 95
[2018-09-12] MEDS: ACETAMINOPHEN 1,000 MG/100 ML BTL 400 MG IVPB (17:21)
[2018-09-12 19:02] VITALS: BP 118/78; PULSE 76; RESP 24; TEMP 36.2; O2SAT 95
[2018-09-12] MEDS: Lactated Ringers 1,000 ML 50 ML IV (20:22)
[2018-09-13] MEDS: Sucralfate 1 GM TAB PO ×4 (00:50→18:10)
[2018-09-13] MEDS: MetroNIDAZOLE 500 MG/100 ML BAG 100 MG IVPB ×3 (00:51→16:45)
[2018-09-13] MEDS: Normal Saline Flush 10 ML SYR IVP ×5 (02:58→19:53)
[2018-09-13] MEDS: Ketorolac 15 MG/ML VIAL IVP ×4 (02:59→19:53)
[2018-09-13] MEDS: CIPROFLOXACIN 400 MG/200 ML BAG 200 MG IVPB ×2 (03:00→14:07)
[2018-09-13 04:50] VITALS: BP 119/67; PULSE 73; RESP 18; TEMP 37.5; O2SAT 94
--- NOTE | 2018-09-13 06:09 | W.PM.PROGNOT ---
Date of Service Date of service: 09/13/18 Time of Service: 06:09 Assessment and Plan (1) Leukocytosis (leucocytosis): Start date: 09/13/18 Start time: 06:10 Current visit: Yes Status: Acute resolved unknown etiology will cont course for 7 days total Qualifiers: Leukocytosis type: unspecified Qualified Code(s): D72.829 - Elevated white blood cell count, unspecified (2) Abdominal pain: Start date: 09/13/18 Start time: 06:11 Current visit: Yes Status: Acute resolved will need upper endoscopy in the next few weeks concern for ulcer as cause of his condition will cont PPI Subjective Patient reports: no new complaints, feels better and pain is less Exam Const General: cooperative Nutritional Appearance: average body habitus Orientation: alert, awake and oriented x3 GI Inspection: normal to inspection Palpation: soft Percussion: normal to percussion Auscultation: normal bowel sounds Objective Objective Clinical Data: Abnormal lab results 09/12/18 09/12/18 Range/Units 06:20 06:20 RBC 3.47 L (4.50-6.00) m/cumm Hgb 10.9 L (13.5-17.5) g/dL Hct 33.1 L (40.0-50.0) % MCV 95.4 H (80-95) fL MPV 11.8 H (8.0-11.0) fL Absolute Neutrophils 7.38 H (1.2-6.7) k/cumm Absolute Lymphocytes 0.75 L (1.2-3.4) k/cumm Absolute Monocytes 0.73 H (0.11-0.7) k/cumm Calcium 8.0 L (8.5-10.1) mg/dL Total Protein 5.8 L (6.4-8.2) g/dL Albumin 2.4 L (3.4-5.0) g/dL Vital Signs Temperature 37.5 C 09/13/18 04:50 Temperature Source Tympanic 09/13/18 04:50 Pulse 73 09/13/18 04:50 Pulse Rhythm Regular 09/13/18 00:50 Pulse 105 H 09/09/18 22:10 Respiratory Rate 18 09/13/18 04:50 Respiratory Effort 09/13/18 00:50 Respiratory Depth Normal 09/13/18 00:50 Respiratory Pattern Normal 09/13/18 00:50 Blood Pressure 119/67 09/13/18 04:50 Blood Pressure Mean 100 09/09/18 22:01 Blood Pressure Position Sitting 09/09/18 18:02 Pulse Oximetry 94 L 09/13/18 04:50 Oxygen Delivery Method Room Air 09/13/18 04:50 Oxygen Flow Rate 0 09/13/18 04:50 Pain Level 9 09/13/18 02:59 Intake & Output 09/12/18 09/12/18 09/13/18 11:59 23:59 11:59 Intake Total 1607.500 / 3212.500 1605.000 / 3212.500 Output Total 1050 / 1050 Balance 1607.500 / 2162.500 555.000 / 2162.500 Intake: IV 1367.500 / 2252.500 885.000 / 2252.500 Oral 240 / 960 720 / 960 Output: Urine 1050 / 1050 Other: Urine Color Dark Marah Urine Appearance Clear Comment Urine not seen at this time. Patient flushed toilet Stool Size Small Stool Characteristics Soft Brown Voiding Methods Toilet Toilet Laboratory Results WBC 9.18 k/cumm (4.4-10.8) 09/12/18 06:20 RBC 3.47 m/cumm (4.50-6.00) L 09/12/18 06:20 Hgb 10.9 g/dL (13.5-17.5) L 09/12/18 06:20 Hct 33.1 % (40.0-50.0) L 09/12/18 06:20 MCV 95.4 fL (80-95) H 09/12/18 06:20 MCH 31.4 pg (27.0-33.0) 09/12/18 06:20 MCHC 32.9 g/dL (32.0-36.0) 09/12/18 06:20 RDW 12.4 % (11.8-14.1) 09/12/18 06:20 Plt Count 161 x1000/uL (130-400) 09/12/18 06:20 MPV 11.8 fL (8.0-11.0) H 09/12/18 06:20 Immature Gran % 0.1 09/12/18 06:20 Neutrophils % 80.3 09/12/18 06:20 Lymphocytes % 8.2 09/12/18 06:20 Monocytes % 8.0 09/12/18 06:20 Eosinophils % 3.3 09/12/18 06:20 Basophils % 0.1 09/12/18 06:20 Absolute Neutrophils 7.38 k/cumm (1.2-6.7) H 09/12/18 06:20 Absolute Lymphocytes 0.75 k/cumm (1.2-3.4) L 09/12/18 06:20 Absolute Monocytes 0.73 k/cumm (0.11-0.7) H 09/12/18 06:20 Absolute Eosinophils 0.30 k/cumm (0.0-0.7) 09/12/18 06:20 Absolute Basophils 0.01 k/cumm (0.0-0.2) 09/12/18 06:20 Sodium 141 mmol/L (136-145) 09/12/18 06:20 Potassium 3.6 mmol/L (3.5-5.1) 09/12/18 06:20 Chloride 106 mmol/L (98-107) 09/12/18 06:20 Carbon Dioxide 25.7 mmol/L (21.0-32.0) 09/12/18 06:20 Anion Gap 9.3 mmol/L (3-11) 09/12/18 06:20 BUN 17 mg/dL (7-18) 09/12/18 06:20 Creatinine 1.05 mg/dL (0.70-1.30) 09/12/18 06:20 Estimated GFR/1.73 m2 >= 60.00 (mL/min/1.73m2) 09/12/18 06:20 Glucose 94 mg/dL (70-100) 09/12/18 06:20 Lactate 1.8 mmol/L (0.6-1.4) H 09/09/18 18:23 Calcium 8.0 mg/dL (8.5-10.1) L 09/12/18 06:20 Total Bilirubin 0.8 mg/dL (0.2-1.0) 09/12/18 06:20 AST 15 U/L (15-37) 09/12/18 06:20 ALT 46 U/L (12-78) 09/12/18 06:20 Alkaline Phosphatase 103 U/L (46-116) 09/12/18 06:20 Total Protein 5.8 g/dL (6.4-8.2) L 09/12/18 06:20 Albumin 2.4 g/dL (3.4-5.0) L 09/12/18 06:20 Amylase 72 U/L (25-115) 09/10/18 06:58 Lipase 100 U/L (73-393) 09/10/18 06:58 Urine Color Brown (Yellow) 09/11/18 08:59 Urine Clarity Sl cloudy 09/11/18 08:59 Urine pH 6.0 (5-8) 09/11/18 08:59 Ur Specific [place] >= 1.030 (1.005-1.025) H 09/11/18 08:59 Urine Protein 100 mg/dL (Negative) H 09/11/18 08:59 Urine Ketones 40 mg/dL (Negative) H 09/11/18 08:59 Urine Blood Negative (Negative) 09/11/18 08:59 Urine Nitrite Positive (Negative) H 09/11/18 08:59 Urine Bilirubin Moderate (Negative) H 09/11/18 08:59 Urine Urobilinogen 0.2 EU/dL (Up TO 0.2) 09/11/18 08:59 Ur Leukocyte Esterase Negative (Negative) 09/11/18 08:59 Urine RBC Negative (0-2) 09/11/18 08:59 Urine WBC 5-10 HPF (0-5) 09/11/18 08:59 Ur Epithelial Cells Few HPF (Negative) 09/11/18 08:59 Urine Crystals Few amorphous HPF (Negative) 09/11/18 08:59 Urine Bacteria Moderate HPF (Negative) 09/11/18 08:59 Urine Casts 0-2 coarse granular LPF (Negative) 09/11/18 08:59 Urine Mucus Moderate (Negative) 09/11/18 08:59 Urine Other (Negative) 09/11/18 08:59 Ur Culture Indicated? Yes 09/11/18 08:59 Urine Glucose Negative mg/dL (Negative) 09/11/18 08:59 Stl C.difficile Tox PCR Negative 09/10/18 22:27 C.difficile Tox Source Feces 09/10/18 22:27 C.difficile Tox Ab Neut Cancelled 09/10/18 13:58 Patient ABO/Rh A Positive 09/09/18 18:23 Antibody Screen Negative 09/09/18 18:23
[2018-09-13 07:20] VITALS: BP 130/78; PULSE 75; RESP 17; TEMP 37.1; O2SAT 94
[2018-09-13 07:41] LABS: Abs Immature Grans 0.03 k/cumm (0.0-0.09); Absolute Basophil Count 0.03 k/cumm (0.0-0.2); Absolute Lymphocyte Count 0.87 k/cumm (1.2-3.4); Absolute Monocyte Count 0.73 k/cumm (0.11-0.7); Basophils % 0.4; Eosinophils % 3.6; HCT 32.6 % (40.0-50.0); HGB 10.6 g/dL (13.5-17.5); Immature Grans % 0.4; Lymphocytes % 10.4; Mean Corp. HGB Concentration 32.5 g/dL (32.0-36.0); Mean Corpuscular Hemoglobin 30.5 pg (27.0-33.0); Mean Corpuscular Volume 93.7 fL (80-95); Mean Platelet Volume 11.6 fL (8.0-11.0); Monocytes % 8.7; Neutrophils % 76.5; Platelet Count 196 x1000/uL (130-400); RBC 3.48 m/cumm (4.50-6.00); RBC Distribution Width 12.6 % (11.8-14.1); White Blood Cell Count 8.36 k/cumm (4.4-10.8)
--- NOTE | 2018-09-13 07:55 | PDOC.CMPRO ---
- If Service Date Differs Date of service: 09/13/18 Time of Service: 07:55 Care Management Progress Note S/O: Kai is in the room, correctional officers are present. Anticipate discharge in the next 24 hours if tolerates p.o. per provider. A: 63 yo male admitted 09/09/18 abdominal pain, duodenitis, P: Kai will return to [facility] at time of discharge no additional services at that time. [facility] will transport at time of DC.
[2018-09-13 07:59] LABS: ALT 52 U/L (12-78); AST 38 U/L (15-37); Albumin 2.4 g/dL (3.4-5.0); Alkaline Phosphatase 261 U/L (46-116); Anion Gap 9.4 mmol/L (3-11); BUN 12 mg/dL (7-18); Bilirubin, Total 0.7 mg/dL (0.2-1.0); CO2 24.6 mmol/L (21.0-32.0); CREATININE 0.96 mg/dL (0.70-1.30); Calcium 7.9 mg/dL (8.5-10.1); Chloride 106 mmol/L (98-107); Glucose 110 mg/dL (70-100); Sodium 140 mmol/L (136-145); Total Protein 5.6 g/dL (6.4-8.2)
[2018-09-13] MEDS: Umeclidinium 7 CAP INHALER 1 CAP IH (09:40)
[2018-09-13] MEDS: Pantoprazole 40 MG VIAL IVP ×2 (09:40→19:53)
[2018-09-13 11:18] LABS: Campylobacter PCR SEE COMMENTS; Salmonella PCR SEE COMMENTS; Shiga Toxin PCR SEE COMMENTS; Shigella/Enteroinvasive Ecoli SEE COMMENTS
--- NOTE | 2018-09-13 12:12 | PGE_ITS ---
Date of Service Date of service: 09/13/18 Time of Service: 12:09 Assessment and Plan (1) Leukocytosis (leucocytosis): Start date: 09/13/18 Start time: 12:10 Current visit: Yes Status: Acute resolved on antibiotics Qualifiers: Leukocytosis type: unspecified Qualified Code(s): D72.829 - Elevated white blood cell count, unspecified (2) Abdominal pain: Start date: 09/13/18 Start time: 12:11 Current visit: Yes Status: Acute (3) Nausea & vomiting: Start date: 09/13/18 Start time: 12:11 Current visit: Yes Status: Acute unwitnessed vomit unsure if this is happening tried to advance diet just now and pt does not want more than the [place] cheese he ordered awaiting PCR results on his precautions Subjective Patient reports: no new complaints and nausea Interval history since last seen: did not do well with breakfast, on precautions for cdiff cureently Exam GI Inspection: normal to inspection Palpation: soft Percussion: normal to percussion Auscultation: normal bowel sounds Objective Objective Clinical Data: Abnormal lab results 09/13/18 09/13/18 Range/Units 06:32 06:32 RBC 3.48 L (4.50-6.00) m/cumm Hgb 10.6 L (13.5-17.5) g/dL Hct 32.6 L (40.0-50.0) % MPV 11.6 H (8.0-11.0) fL Absolute Lymphocytes 0.87 L (1.2-3.4) k/cumm Absolute Monocytes 0.73 H (0.11-0.7) k/cumm Potassium 3.0 L (3.5-5.1) mmol/L Glucose 110 H (70-100) mg/dL Calcium 7.9 L (8.5-10.1) mg/dL AST 38 H (15-37) U/L Alkaline Phosphatase 261 H (46-116) U/L Total Protein 5.6 L (6.4-8.2) g/dL Albumin 2.4 L (3.4-5.0) g/dL Vital Signs Temperature 37.5 C 09/13/18 04:50 Temperature Source Tympanic 09/13/18 04:50 Pulse 73 09/13/18 04:50 Pulse Rhythm Regular 09/13/18 11:22 Pulse 105 H 09/09/18 22:10 Respiratory Rate 18 09/13/18 04:50 Respiratory Effort 09/13/18 11:22 Respiratory Depth Normal 09/13/18 11:22 Respiratory Pattern Normal 09/13/18 11:22 Blood Pressure 119/67 09/13/18 04:50 Blood Pressure Mean 100 09/09/18 22:01 Blood Pressure Position Sitting 09/09/18 18:02 Pulse Oximetry 94 L 09/13/18 04:50 Oxygen Delivery Method Room Air 09/13/18 04:50 Oxygen Flow Rate 0 09/13/18 04:50 Pain Level 9 09/13/18 09:39 Intake & Output 09/12/18 09/13/18 09/13/18 23:59 11:59 23:59 Intake Total 1605.000 / 3212.500 898.333 / 898.333 Output Total 1050 / 1050 Balance 555.000 / 2162.500 898.333 / 898.333 Intake: IV 885.000 / 2252.500 658.333 / 658.333 Oral 720 / 960 240 / 240 Output: Urine 1050 / 1050 Other: Urine Color Dark Marah Urine Appearance Clear Clear Comment void x 2 during noc Stool Size Small Stool Characteristics Soft Brown Emesis Description None Voiding Methods Toilet Toilet Laboratory Results WBC 8.36 k/cumm (4.4-10.8) 09/13/18 06:32 RBC 3.48 m/cumm (4.50-6.00) L 09/13/18 06:32 Hgb 10.6 g/dL (13.5-17.5) L 09/13/18 06:32 Hct 32.6 % (40.0-50.0) L 09/13/18 06:32 MCV 93.7 fL (80-95) 09/13/18 06:32 MCH 30.5 pg (27.0-33.0) 09/13/18 06:32 MCHC 32.5 g/dL (32.0-36.0) 09/13/18 06:32 RDW 12.6 % (11.8-14.1) 09/13/18 06:32 Plt Count 196 x1000/uL (130-400) 09/13/18 06:32 MPV 11.6 fL (8.0-11.0) H 09/13/18 06:32 Immature Gran % 0.4 09/13/18 06:32 Neutrophils % 76.5 09/13/18 06:32 Lymphocytes % 10.4 09/13/18 06:32 Monocytes % 8.7 09/13/18 06:32 Eosinophils % 3.6 09/13/18 06:32 Basophils % 0.4 09/13/18 06:32 Absolute Neutrophils 6.40 k/cumm (1.2-6.7) 09/13/18 06:32 Absolute Lymphocytes 0.87 k/cumm (1.2-3.4) L 09/13/18 06:32 Absolute Monocytes 0.73 k/cumm (0.11-0.7) H 09/13/18 06:32 Absolute Eosinophils 0.30 k/cumm (0.0-0.7) 09/13/18 06:32 Absolute Basophils 0.03 k/cumm (0.0-0.2) 09/13/18 06:32 Sodium 140 mmol/L (136-145) 09/13/18 06:32 Potassium 3.0 mmol/L (3.5-5.1) L 09/13/18 06:32 Chloride 106 mmol/L (98-107) 09/13/18 06:32 Carbon Dioxide 24.6 mmol/L (21.0-32.0) 09/13/18 06:32 Anion Gap 9.4 mmol/L (3-11) 09/13/18 06:32 BUN 12 mg/dL (7-18) 09/13/18 06:32 Creatinine 0.96 mg/dL (0.70-1.30) 09/13/18 06:32 Estimated GFR/1.73 m2 >= 60.00 (mL/min/1.73m2) 09/13/18 06:32 Glucose 110 mg/dL (70-100) H 09/13/18 06:32 Lactate 1.8 mmol/L (0.6-1.4) H 09/09/18 18:23 Calcium 7.9 mg/dL (8.5-10.1) L 09/13/18 06:32 Total Bilirubin 0.7 mg/dL (0.2-1.0) 09/13/18 06:32 AST 38 U/L (15-37) H 09/13/18 06:32 ALT 52 U/L (12-78) 09/13/18 06:32 Alkaline Phosphatase 261 U/L (46-116) H 09/13/18 06:32 Total Protein 5.6 g/dL (6.4-8.2) L 09/13/18 06:32 Albumin 2.4 g/dL (3.4-5.0) L 09/13/18 06:32 Amylase 72 U/L (25-115) 09/10/18 06:58 Lipase 100 U/L (73-393) 09/10/18 06:58 Urine Color Brown (Yellow) 09/11/18 08:59 Urine Clarity Sl cloudy 09/11/18 08:59 Urine pH 6.0 (5-8) 09/11/18 08:59 Ur Specific [place] >= 1.030 (1.005-1.025) H 09/11/18 08:59 Urine Protein 100 mg/dL (Negative) H 09/11/18 08:59 Urine Ketones 40 mg/dL (Negative) H 09/11/18 08:59 Urine Blood Negative (Negative) 09/11/18 08:59 Urine Nitrite Positive (Negative) H 09/11/18 08:59 Urine Bilirubin Moderate (Negative) H 09/11/18 08:59 Urine Urobilinogen 0.2 EU/dL (Up TO 0.2) 09/11/18 08:59 Ur Leukocyte Esterase Negative (Negative) 09/11/18 08:59 Urine RBC Negative (0-2) 09/11/18 08:59 Urine WBC 5-10 HPF (0-5) 09/11/18 08:59 Ur Epithelial Cells Few HPF (Negative) 09/11/18 08:59 Urine Crystals Few amorphous HPF (Negative) 09/11/18 08:59 Urine Bacteria Moderate HPF (Negative) 09/11/18 08:59 Urine Casts 0-2 coarse granular LPF (Negative) 09/11/18 08:59 Urine Mucus Moderate (Negative) 09/11/18 08:59 Urine Other (Negative) 09/11/18 08:59 Ur Culture Indicated? Yes 09/11/18 08:59 Urine Glucose Negative mg/dL (Negative) 09/11/18 08:59 Stl C.difficile Tox PCR Negative 09/10/18 22:27 C.difficile Tox Source Feces 09/10/18 22:27 C.difficile Tox Ab Neut Cancelled 09/10/18 13:58 Patient ABO/Rh A Positive 09/09/18 18:23 Antibody Screen Negative 09/09/18 18:23
[2018-09-13] MEDS: HYDROmorphone 2 MG/ML VIAL IVP ×2 (14:53→19:53)
[2018-09-13 16:08] VITALS: BP 126/67; PULSE 70; RESP 18; TEMP 36.7; O2SAT 94
--- NOTE | 2018-09-13 17:05 | NUR.NOTE ---
Nursing Note: patient c/o of intense stomach pain this afternoon, spoke to to see if he thought that the slowely declining H&H might be indicative of a bleed. He said he will continue to monitor the situation and is aware, gave patient 1 mg of dilaudid, which had the desired effect.
[2018-09-13] MEDS: Lactated Ringers 1,000 ML 50 ML IV (21:01)
[2018-09-13 23:53] VITALS: BP 116/73; PULSE 82; RESP 18; TEMP 36.4; O2SAT 91
[2018-09-14] MEDS: Ketorolac 15 MG/ML VIAL IVP ×2 (01:52→08:04)
[2018-09-14] MEDS: CIPROFLOXACIN 400 MG/200 ML BAG 200 MG IVPB (01:52)
[2018-09-14] MEDS: Sucralfate 1 GM TAB PO ×3 (05:42→11:53)
[2018-09-14] MEDS: HYDROmorphone 2 MG/ML VIAL IVP (05:43)
[2018-09-14 07:00] VITALS: BP 119/75; PULSE 77; RESP 20; TEMP 37.2; O2SAT 94
--- NOTE | 2018-09-14 07:39 | PGE_ITS ---
Date of Service Date of service: 09/14/18 Time of Service: 07:33 Assessment and Plan (1) Abdominal pain: Start date: 09/14/18 Start time: 07:37 Current visit: Yes Status: Acute pt claims pain but on exam he is soft and NT unsure but due to his incarceration im concerned there is a portion of this that is malingering will advance diet wbc has normalized hh has dropped a small bit but believe to be dilutional i suspect his condition that brought him to the hospital is a ulcer he will need a scope upper endoscopy to confirm this (2) Leukocytosis (leucocytosis): Current visit: Yes Status: Acute Qualifiers: Leukocytosis type: unspecified Qualified Code(s): D72.829 - Elevated white blood cell count, unspecified (3) Nausea & vomiting: Current visit: Yes Status: Acute Subjective Patient reports: no new complaints, nausea and vomiting Interval history since last seen: pt claims to have these they have not been witnessed by staff nor the officers from the jail watching him Exam Const General: cooperative Nutritional Appearance: average body habitus Orientation: alert, awake and oriented x3 GI Inspection: normal to inspection Palpation: soft Percussion: normal to percussion Other: pt claims pain but on exam he is soft and NT unsure but due to his incarceration im concerned there is a portion of this that is malingering will advance diet wbc has normalized hh has dropped a small bit but believe to be dilutional Objective Objective Clinical Data: Abnormal lab results 09/13/18 09/13/18 Range/Units 06:32 06:32 RBC 3.48 L (4.50-6.00) m/cumm Hgb 10.6 L (13.5-17.5) g/dL Hct 32.6 L (40.0-50.0) % MPV 11.6 H (8.0-11.0) fL Absolute Lymphocytes 0.87 L (1.2-3.4) k/cumm Absolute Monocytes 0.73 H (0.11-0.7) k/cumm Potassium 3.0 L (3.5-5.1) mmol/L Glucose 110 H (70-100) mg/dL Calcium 7.9 L (8.5-10.1) mg/dL AST 38 H (15-37) U/L Alkaline Phosphatase 261 H (46-116) U/L Total Protein 5.6 L (6.4-8.2) g/dL Albumin 2.4 L (3.4-5.0) g/dL Vital Signs Temperature 36.4 C L 09/13/18 23:53 Temperature Source Tympanic 09/13/18 23:53 Pulse 82 09/13/18 23:53 Pulse Rhythm Regular 09/13/18 19:50 Pulse 105 H 09/09/18 22:10 Respiratory Rate 18 09/13/18 23:53 Respiratory Effort 09/13/18 19:50 Respiratory Depth Normal 09/13/18 19:50 Respiratory Pattern Normal 09/13/18 19:50 Blood Pressure 116/73 09/13/18 23:53 Blood Pressure Mean 100 09/09/18 22:01 Blood Pressure Position Sitting 09/09/18 18:02 Pulse Oximetry 91 L 09/13/18 23:53 Oxygen Delivery Method Room Air 09/13/18 23:53 Oxygen Flow Rate 0 09/13/18 23:53 Pain Level 8 09/14/18 05:43 Intake & Output 09/13/18 09/13/18 09/14/18 11:59 23:59 11:59 Intake Total 898.333 / 2733.333 1835 / 2733.333 Balance 898.333 / 2733.333 1835 / 2733.333 Intake: IV 658.333 / 1593.333 935 / 1593.333 Oral 240 / 1140 900 / 1140 Other: Urine Appearance Clear Clear Comment void x 2 during noc Emesis Description None Voiding Methods Toilet Laboratory Results WBC 8.36 k/cumm (4.4-10.8) 09/13/18 06:32 RBC 3.48 m/cumm (4.50-6.00) L 09/13/18 06:32 Hgb 10.6 g/dL (13.5-17.5) L 09/13/18 06:32 Hct 32.6 % (40.0-50.0) L 09/13/18 06:32 MCV 93.7 fL (80-95) 09/13/18 06:32 MCH 30.5 pg (27.0-33.0) 09/13/18 06:32 MCHC 32.5 g/dL (32.0-36.0) 09/13/18 06:32 RDW 12.6 % (11.8-14.1) 09/13/18 06:32 Plt Count 196 x1000/uL (130-400) 09/13/18 06:32 MPV 11.6 fL (8.0-11.0) H 09/13/18 06:32 Immature Gran % 0.4 09/13/18 06:32 Neutrophils % 76.5 09/13/18 06:32 Lymphocytes % 10.4 09/13/18 06:32 Monocytes % 8.7 09/13/18 06:32 Eosinophils % 3.6 09/13/18 06:32 Basophils % 0.4 09/13/18 06:32 Absolute Neutrophils 6.40 k/cumm (1.2-6.7) 09/13/18 06:32 Absolute Lymphocytes 0.87 k/cumm (1.2-3.4) L 09/13/18 06:32 Absolute Monocytes 0.73 k/cumm (0.11-0.7) H 09/13/18 06:32 Absolute Eosinophils 0.30 k/cumm (0.0-0.7) 09/13/18 06:32 Absolute Basophils 0.03 k/cumm (0.0-0.2) 09/13/18 06:32 Sodium 140 mmol/L (136-145) 09/13/18 06:32 Potassium 3.0 mmol/L (3.5-5.1) L 09/13/18 06:32 Chloride 106 mmol/L (98-107) 09/13/18 06:32 Carbon Dioxide 24.6 mmol/L (21.0-32.0) 09/13/18 06:32 Anion Gap 9.4 mmol/L (3-11) 09/13/18 06:32 BUN 12 mg/dL (7-18) 09/13/18 06:32 Creatinine 0.96 mg/dL (0.70-1.30) 09/13/18 06:32 Estimated GFR/1.73 m2 >= 60.00 (mL/min/1.73m2) 09/13/18 06:32 Glucose 110 mg/dL (70-100) H 09/13/18 06:32 Lactate 1.8 mmol/L (0.6-1.4) H 09/09/18 18:23 Calcium 7.9 mg/dL (8.5-10.1) L 09/13/18 06:32 Total Bilirubin 0.7 mg/dL (0.2-1.0) 09/13/18 06:32 AST 38 U/L (15-37) H 09/13/18 06:32 ALT 52 U/L (12-78) 09/13/18 06:32 Alkaline Phosphatase 261 U/L (46-116) H 09/13/18 06:32 Total Protein 5.6 g/dL (6.4-8.2) L 09/13/18 06:32 Albumin 2.4 g/dL (3.4-5.0) L 09/13/18 06:32 Amylase 72 U/L (25-115) 09/10/18 06:58 Lipase 100 U/L (73-393) 09/10/18 06:58 Urine Color Brown (Yellow) 09/11/18 08:59 Urine Clarity Sl cloudy 09/11/18 08:59 Urine pH 6.0 (5-8) 09/11/18 08:59 Ur Specific [place] >= 1.030 (1.005-1.025) H 09/11/18 08:59 Urine Protein 100 mg/dL (Negative) H 09/11/18 08:59 Urine Ketones 40 mg/dL (Negative) H 09/11/18 08:59 Urine Blood Negative (Negative) 09/11/18 08:59 Urine Nitrite Positive (Negative) H 09/11/18 08:59 Urine Bilirubin Moderate (Negative) H 09/11/18 08:59 Urine Urobilinogen 0.2 EU/dL (Up TO 0.2) 09/11/18 08:59 Ur Leukocyte Esterase Negative (Negative) 09/11/18 08:59 Urine RBC Negative (0-2) 09/11/18 08:59 Urine WBC 5-10 HPF (0-5) 09/11/18 08:59 Ur Epithelial Cells Few HPF (Negative) 09/11/18 08:59 Urine Crystals Few amorphous HPF (Negative) 09/11/18 08:59 Urine Bacteria Moderate HPF (Negative) 09/11/18 08:59 Urine Casts 0-2 coarse granular LPF (Negative) 09/11/18 08:59 Urine Mucus Moderate (Negative) 09/11/18 08:59 Urine Other (Negative) 09/11/18 08:59 Ur Culture Indicated? Yes 09/11/18 08:59 Urine Glucose Negative mg/dL (Negative) 09/11/18 08:59 Stool Campylobacter PCR See comments 09/11/18 20:50 Stl C.difficile Tox PCR Negative 09/10/18 22:27 Stool Salmonella PCR See comments 09/11/18 20:50 Stool Shigella PCR See comments 09/11/18 20:50 C.difficile Tox Source Feces 09/10/18 22:27 C.difficile Tox Ab Neut Cancelled 09/10/18 13:58 Shiga Toxin (PCR) See comments 09/11/18 20:50 Patient ABO/Rh A Positive 09/09/18 18:23 Antibody Screen Negative 09/09/18 18:23
[2018-09-14] MEDS: MetroNIDAZOLE 500 MG/100 ML BAG 100 MG IVPB ×2 (08:03)
[2018-09-14] MEDS: Umeclidinium 7 CAP INHALER 1 CAP IH (08:03)
[2018-09-14] MEDS: Pantoprazole 40 MG VIAL IVP (08:04)
[2018-09-14] MEDS: Normal Saline Flush 10 ML SYR IVP (08:04)
--- NOTE | 2018-09-14 09:05 | W.PM.DS.N ---
Date of service: 09/14/18 Time of Service: 09:05 DS: Diagnosis Discharge Diagnosis (1) Abdominal pain: Status: Acute (2) Leukocytosis (leucocytosis): Status: Acute (3) Nausea & vomiting: Status: Acute Discharge Plan Disposition Patient Disposition: [facility] Condition: Stable Discharge Details Chief Complaint: Abd Prob Clinical Impression: Abdominal pain, Hypokalemia Reason For Visit: Abdominal pain with leukocytosis Admit Date/Time: 09/09/18 21:28 Admit Provider: Tommy Ulloa III Attending Provider: Tommy Ulloa III Primary Care Provider: None,None [facility] Course: Patient was admitted with unknown etiology for his leukocytosis and abdominal pain. CAT scan showed significant streaking of the omentum and mesentery in the peripancreatic and gastric region with concerns for pancreatitis or a gastric ulcer. Patient was started on empiric IV antibiotics with pain meds and IV hydration. Patient was kept n.p.o. and over the course of 4 days in the hospital all his labs returned to normal. Patient was advanced on his diet to a clear liquid where he occasionally would complain of nausea and vomiting but ultimately he was tolerating his diet and was ready for discharge. Patient had H. pylori test and will be continued on antibiotics for H. pylori for a total of 2 weeks. Plan was to have patient reschedule for a upper endoscopy approximately 2 weeks out after the course of antibiotics had finished. Home Meds and New Rx's Prescriptions: New metronidazole [Flagyl] 500 mg tablet 500 mg PO BID Qty: 28 RF: 0 omeprazole 40 mg capsule,delayed release(DR/EC) 40 mg PO BID Qty: 28 RF: 0 clarithromycin 500 mg tablet 500 mg PO BID Qty: 28 RF: 0 Continued hydrochlorothiazide 25 MG tablet 1 tab PO DAILY RF: 0 sennosides [senna] 8.6 mg Tablet 8.6 mg PO BID PRNRF: 0 acetaminophen 325 mg Tablet 325 mg PO Q6H PRNRF: 0 aspirin 81 mg Tablet,Delayed Release (Dr/Ec) 81 mg PO DAILY RF: 0 magnesium hydroxide [Milk of Magnesia] 400 mg/5 mL Suspension 1 dose PO BID RF: 0 ibuprofen 200 mg Tablet 600 mg PO BID RF: 0 docusate sodium [Colace] 100 mg Capsule 100 mg PO DAILY RF: 0 Ventolin HFA 90 mcg/actuation Hfa Aerosol Inhaler 1 inh Inhalation QID PRNRF: 0 simethicone 80 mg Tablet,Chewable 80 mg PO ONCE RF: 0 metoprolol tartrate 25 mg Tablet 1 tab PO BID RF: 0 Incruse Ellipta 62.5 mcg/actuation Blister With Device 62.5 mcg Inhalation DAILY RF: 0 psyllium husk [Metamucil] 0.4 gram Capsule 1 packet PO PRN PRNRF: 0 Discharge Instructions Referrals: Artemio MERRITT,Tommy Segovia DO [OSTEOPATHIC DOCTOR] - Activity:: Activity as Tolerated Equipment/Supplies:: No Equipment Needed Diet:: As Tolerated Discharge Orders Discharge Orders: Discharge Order (Routine); Ordered 09/14/18 Ordered By: Tommy Ulloa III DS: Data Vitals/I&O Vitals and I&O: Vital Signs Temperature 36.4 C L 09/13/18 23:53 Temperature Source Tympanic 09/13/18 23:53 Pulse 82 09/13/18 23:53 Pulse Rhythm Regular 09/13/18 19:50 Pulse 105 H 09/09/18 22:10 Respiratory Rate 18 09/13/18 23:53 Respiratory Effort 09/13/18 19:50 Respiratory Depth Normal 09/13/18 19:50 Respiratory Pattern Normal 09/13/18 19:50 Blood Pressure 116/73 09/13/18 23:53 Blood Pressure Mean 100 09/09/18 22:01 Blood Pressure Position Sitting 09/09/18 18:02 Pulse Oximetry 91 L 09/13/18 23:53 Oxygen Delivery Method Room Air 09/13/18 23:53 Oxygen Flow Rate 0 09/13/18 23:53 Pain Level 8 09/14/18 05:43 Intake & Output 09/13/18 09/13/18 09/14/18 11:59 23:59 11:59 Intake Total 898.333 / 2733.333 1835 / 2733.333 300 / 300 Balance 898.333 / 2733.333 1835 / 2733.333 300 / 300 Intake: IV 658.333 / 1593.333 935 / 1593.333 300 / 300 Oral 240 / 1140 900 / 1140 Other: Urine Appearance Clear Clear Comment void x 2 during noc Emesis Description None Voiding Methods Toilet Labs on day of discharge: Labs from last 24 hours 09/14/18 09/11/18 Unknown 20:50 Stool Campylobacter PCR See comments Stool Salmonella PCR See comments Stool Shigella PCR See comments H. pylori Breath Test Pending Shiga Toxin (PCR) See comments Preliminary micro results at discharge 09/10/18 16:12 Blood Culture - Preliminary Blood NO GROWTH 72 HOURS 09/10/18 16:12 Blood Culture - Preliminary Blood NO GROWTH 72 HOURS [facility] Medical History Left shift without diagnosis of specific infection (Acute) Leukocytosis (leucocytosis) (Acute) Duodenitis (Acute) Acute pancreatitis (Acute) Abdominal pain (Acute) COPD (chronic obstructive pulmonary disease) (Chronic) Social History Smoking/Tobacco Use Status: Former Tobacco Use
--- NOTE | 2018-09-14 09:10 | DSE_ITS ---
Date of service: 09/14/18 Time of Service: 09:05 DS: Diagnosis Discharge Diagnosis (1) Abdominal pain: Status: Acute (2) Leukocytosis (leucocytosis): Status: Acute (3) Nausea & vomiting: Status: Acute Discharge Plan Disposition Patient Disposition: [facility] Condition: Stable Discharge Details Chief Complaint: Abd Prob Clinical Impression: Abdominal pain, Hypokalemia Reason For Visit: Abdominal pain with leukocytosis Admit Date/Time: 09/09/18 21:28 Admit Provider: Tommy Ulloa III Attending Provider: Tommy Ulloa III Primary Care Provider: None,None [facility]: Patient was admitted with unknown etiology for his leukocytosis and abdominal pain. CAT scan showed significant streaking of the omentum and mesentery in the peripancreatic and gastric region with concerns for pancreatitis or a gastric ulcer. Patient was started on empiric IV antibiotics with pain meds and IV hydration. Patient was kept n.p.o. and over the course of 4 days in the hospital all his labs returned to normal. Patient was advanced on his diet to a clear liquid where he occasionally would complain of nausea and vomiting but ultimately he was tolerating his diet and was ready for discharge. Patient had H. pylori test and will be continued on antibiotics for H. pylori for a total of 2 weeks. Plan was to have patient reschedule for a upper endoscopy approxi mately 2 weeks out after the course of antibiotics had finished. Home Meds and New Rx's Prescriptions: New metronidazole [Flagyl] 500 mg tablet 500 mg PO BID Qty: 28 RF: 0 omeprazole 40 mg capsule,delayed release(DR/EC) 40 mg PO BID Qty: 28 RF: 0 clarithromycin 500 mg tablet 500 mg PO BID Qty: 28 RF: 0 Continued hydrochlorothiazide 25 MG tablet 1 tab PO DAILY RF: 0 sennosides [senna] 8.6 mg Tablet 8.6 mg PO BID PRNRF: 0 acetaminophen 325 mg Tablet 325 mg PO Q6H PRNRF: 0 aspirin 81 mg Tablet,Delayed Release (Dr/Ec) 81 mg PO DAILY RF: 0 magnesium hydroxide [Milk of Magnesia] 400 mg/5 mL Suspension 1 dose PO BID RF: 0 ibuprofen 200 mg Tablet 600 mg PO BID RF: 0 docusate sodium [Colace] 100 mg Capsule 100 mg PO DAILY RF: 0 Ventolin HFA 90 mcg/actuation Hfa Aerosol Inhaler 1 inh Inhalation QID PRNRF: 0 simethicone 80 mg Tablet,Chewable 80 mg PO ONCE RF: 0 metoprolol tartrate 25 mg Tablet 1 tab PO BID RF: 0 Incruse Ellipta 62.5 mcg/actuation Blister With Device 62.5 mcg Inhalation DAILY RF: 0 psyllium husk [Metamucil] 0.4 gram Capsule 1 packet PO PRN PRNRF: 0 Discharge Instructions Referrals: Tommy Ulloa III, DO [OSTEOPATHIC DOCTOR] - Activity:: Activity as Tolerated Equipment/Supplies:: No Equipment Needed Diet:: As Tolerated Discharge Orders Discharge Orders: Discharge Order (Routine); Ordered 09/14/18 Ordered By: Tommy Ulloa III DS: Data Vitals/I&O Vitals and I&O: Vital Signs Temperature 36.4 C L 09/13/18 23:53 Temperature Source Tympanic 09/13/18 23:53 Pulse 82 09/13/18 23:53 Pulse Rhythm Regular 09/13/18 19:50 Pulse 105 H 09/09/18 22:10 Respiratory Rate 18 09/13/18 23:53 Respiratory Effort 09/13/18 19:50 Respiratory Depth Normal 09/13/18 19:50 Respiratory Pattern Normal 09/13/18 19:50 Blood Pressure 116/73 09/13/18 23:53 Blood Pressure Mean 100 09/09/18 22:01 Blood Pressure Position Sitting 09/09/18 18:02 Pulse Oximetry 91 L 09/13/18 23:53 Oxygen Delivery Method Room Air 09/13/18 23:53 Oxygen Flow Rate 0 09/13/18 23:53 Pain Level 8 09/14/18 05:43 Intake & Output 09/13/18 09/13/18 09/14/18 11:59 23:59 11:59 Intake Total 898.333 / 2733.333 1835 / 2733.333 300 / 300 Balance 898.333 / 2733.333 1835 / 2733.333 300 / 300 Intake: IV 658.333 / 1593.333 935 / 1593.333 300 / 300 Oral 240 / 1140 900 / 1140 Other: Urine Appearance Clear Clear Comment void x 2 during noc Emesis Description None Voiding Methods Toilet Labs on day of discharge: Labs from last 24 hours 09/14/18 09/11/18 Unknown 20:50 Stool Campylobacter PCR See comments Stool Salmonella PCR See comments Stool Shigella PCR See comments H. pylori Breath Test Pending Shiga Toxin (PCR) See comments Preliminary micro results at discharge 09/10/18 16:12 Blood Culture - Preliminary Blood NO GROWTH 72 HOURS 09/10/18 16:12 Blood Culture - Preliminary Blood NO GROWTH 72 HOURS [facility] Medical History Left shift without diagnosis of specific infection (Acute) Leukocytosis (leucocytosis) (Acute) Duodenitis (Acute) Acute pancreatitis (Acute) Abdominal pain (Acute) COPD (chronic obstructive pulmonary disease) (Chronic) Social History Smoking/Tobacco Use Status: Former Tobacco Use
--- NOTE | 2018-09-14 13:05 | CMDISCH_ITS ---
- If Service Date Differs Date of service: 09/14/18 Time of Service: 13:03 LACE Index Scoring Tool - Questions: Length of Stay (in days): 4 - 6 Acuity (Admit via E.D.?): Yes Care Management Discharge Reason for Hospitalization: Pancreatitis Discharge Plan: Kai is being discharged back [facility]. CM faxed discharge summary to the facility with recommendations. Correctional officers to transport Kai back to facility at time of discharge. At the time of discharge Kai is tolerating oral intake. Patient/Family Education Needs: Discharge education, follow-up plan of care, limitations and medications. Discharge summary faxed to [facility].
== END 2018-09-14 12:48 | disposition home or self-care (01) | DRG 392 ==
LOC: ER 21:46 → MS 22:31
PROVIDERS: Physical Therapy Assistant; Student in an Organized Health Care Education/Training Program; Surgery; Admitting Provider General Practice; Emergency Provider Emergency Medicine; Visit Provider Surgery
DX: K29.80 Duodenitis without bleeding (principal); D72.829 Elevated white blood cell count, unspecified; R10.13 Epigastric pain; R10.33 Periumbilical pain; E86.0 Dehydration; R11.2 Nausea with vomiting, unspecified; J44.9 Chronic obstructive pulmonary disease, unspecified; I10 Essential (primary) hypertension; Z87.891 Personal history of nicotine dependence
CPT/HCPCS: 36415; 80053; 83690; 86850; 86900; 86901; 87040; 87505; 94640; 96361; 96365; 96366; 96375; 99222; 99232; 99239; 99285; NC; 74177; 81003; 81015; 82150; 83605; 85025; 87086; 87230; 87798; 99284; J0131; J0744; J1885; J3480; J3490; J7613; J7620